=== PATIENT | female | born 1945 | race Caucasian/White ===

== ENCOUNTER 2018-03-19 19:47 | Inpatient (IN) | payer MEDICARE ==
[2018-03-19] MEDS ORDERED: fentaNYL* 50 MCG/ML 2 ML VIAL (100 MCG VIAL) IV ONE (19:58)
[2018-03-19] MEDS ORDERED: Ondansetron INJ* 2 MG/ML VIAL IV ONE (20:00)
[2018-03-19 20:26] LABS: ABS Basophils 0.1 10^3/ul (0-0.2); ABS Eosinophils 0.2 10^3/ul (0-0.6); ABS Lymphocytes 2.2 10^3/ul (1.0-4.8); ABS Monocytes 0.7 10^3/ul (0-0.8); ABS Neutrophils 7.8 10^3/ul (1.5-7.7); ABS Nucleated RBC 0 10^3/ul; Eosinophil % 1.6 % (0-6); Hematocrit 36 % (35-47); Hemoglobin 12.2 g/dl (12.0-16.0); Lymphocyte % 20.2 % (25-47); Mean Corpuscular HGB Conc 34 g/dl (31-36); Mean Corpuscular Hemoglobin 29 pg (27-31); Mean Corpuscular Volume 85 fL (80-97); Mean Platelet Volume 8.6 um3 (7.4-10.4); Nucleated Red Blood Cells % 0; Platelet Count 204 10^3/ul (150-450); Red Cell Distribution Width 15 % (10.5-15); White Blood Count 10.8 10^3/ul (3.5-10.8)
[2018-03-19 20:34] LABS: INR 0.9 (0.77-1.02)
[2018-03-19 20:37] LABS: EGFR Non-African American 45.2 (>60)
[2018-03-19] MEDS ORDERED: fentaNYL* 50 MCG/ML 2 ML VIAL (100 MCG VIAL) IV SLOW PU ONE (21:17)
--- NOTE | 2018-03-19 21:20 | RAD ---
HISTORY: Fall, preoperative evaluation COMPARISONS: None VIEWS: 1: frontal view of the chest FINDINGS: CARDIOMEDIASTINAL SILHOUETTE: The cardiomediastinal silhouette is normal. STEPHANY: The stephany are normal. PLEURA: The costophrenic angles are sharp. No pleural abnormalities are noted. LUNG PARENCHYMA: The lungs are clear. ABDOMEN: The upper abdomen is clear. There is no subphrenic gas. BONES AND SOFT TISSUES: No bone or soft tissue abnormalities are noted. OTHER: None. IMPRESSION: NO ACTIVE CARDIOPULMONARY DISEASE.
--- NOTE | 2018-03-19 21:20 | RAD ---
HISTORY: Fall, right hip pain COMPARISONS: None VIEWS: 5, Frontal view of the pelvis with frontal and crosstable lateral views of the right hip FINDINGS: BONE DENSITY: Normal. BONES: There is a slightly angulated intertrochanteric fracture of the right femur JOINTS: There is no arthropathy. ALIGNMENT: There is no dislocation. SOFT TISSUES: Unremarkable. OTHER FINDINGS: None. IMPRESSION: SLIGHTLY DILATED INTERTROCHANTERIC FRACTURE OF THE RIGHT FEMUR
--- NOTE | 2018-03-19 21:38 | ED ---
Los Mcarthur Thomas, scribed for Abdiaziz Hudson MD on 03/19/18 at 1958 . Lower Extremity - HPI Summary HPI Summary: The patient is a 72 year old female brought in by ambulance complaining of right hip pain after an accidental fall. The patient reports falling because she caught her sandal on the bottom of a chair when standing up. The patient denies head trauma. - History of Current Complaint Chief Complaint: EDHipPelvisInjury Stated Complaint: FALL Time Seen by Provider: 03/19/18 19:52 Hx Obtained From: Patient Mechanism Of Injury: Fall From A Standing Position Onset of Pain: Immediate Onset/Duration: Still Present Severity Currently: Moderate Timing: Constant Location: Is Discrete @ - right hip Associated Signs And Symptoms: Positive: Negative - head trauma Aggravating Factor(s): Ambulation, Movement, Weight Bearing Alleviating Factor(s): Nothing - Allergies/Home Medications Allergies/Adverse Reactions: Allergies Allergy/AdvReac Type Severity Reaction Status Date / Time No Known Allergies Allergy Verified 03/19/18 19:54 Home Medications: Home Medications Calcium Carbonate [Calcium] 500 mg PO BID 03/19/18 [History Confirmed 03/19/18] Doxazosin TAB* [Cardura TAB*] 8 mg PO DAILY 03/19/18 [History Confirmed 03/19/18 ] Escitalopram (NF) [Lexapro 10 mg (NF)] 10 mg PO DAILY 03/19/18 [History Confirmed 03/19/18] Losartan/Hydrochlorothiazide [Losartan-Hctz 100-25 mg Tab] 1 tab PO DAILY [History Confirmed 03/19/18] Multivitamins/Minerals TAB* [Theragran/minerals TAB*] 1 tab PO DAILY 03/19/18 [ History Confirmed 03/19/18] lamoTRIgine TAB(*) [LaMICtal TAB(*)] 100 mg PO BID 03/19/18 [History Confirmed 03/19/18] PMH/Surg Hx/FS Hx/Imm Hx Endocrine/Hematology History: Denies: Hx Diabetes Cardiovascular History: Reports: Hx Hypertension Respiratory History: Denies: Hx Asthma - Cancer History Hx Chemotherapy: No Hx Radiation Therapy: No - Surgical History Surgery Procedure, Year, and Place: gallbladder. throat surgery - Family History Known Family History: Positive: Other - Patient denies relevant FHx - Social History Alcohol Use: Rare Substance Use Type: Reports: None Smoking Status (MU): Never Smoked Tobacco Review of Systems Negative: Fever Positive: Other - Right hip pain Neurological: Negative - head trauma All Other Systems Reviewed And Are Negative: Yes Physical Exam - Summary Physical Exam Summary: VITAL SIGNS: Reviewed. GENERAL: Patient is a well-developed and nourished female who is lying comfortable in the stretcher. Patient is not in any acute respiratory distress. She is in moderate distress secondary to the pain. HEAD AND FACE: No signs of trauma. No ecchymosis, hematomas or skull depressions. No sinus tenderness. EYES: PERRLA, EOMI x 2, No injected conjunctiva, no nystagmus. EARS: Hearing grossly intact. Ear canals and tympanic membranes are within normal limits. MOUTH: Oropharynx within normal limits. NECK: Supple, trachea is midline, no adenopathy, no JVD, no carotid bruit, no c- spine tenderness, neck with full ROM. CHEST: Symmetric, no tenderness at palpation LUNGS: Clear to auscultation bilaterally. No wheezing or crackles. CVS: Regular rate and rhythm, S1 and S2 present, no murmurs or gallops appreciated. ABDOMEN: Soft, non-tender. No signs of distention. No rebound no guarding, and no masses palpated. Bowel sounds are normal. EXTREMITIES: The right lower extremity is short and externally rotated. I cannot move the RLE because of the pain. Neurovascular exam in the intact in the distal right leg. No edema, no cyanosis or clubbing. NEURO: Alert and oriented x 3. No acute neurological deficits. Speech is normal and follows commands. SKIN: Dry and warm Triage Information Reviewed: Yes Vital Signs Reviewed: Yes Diagnostics - Laboratory Result Diagrams: 03/19/18 20:08 03/19/18 20:08 Lab Statement: Any lab studies that have been ordered have been reviewed, and results considered in the medical decision making process. - Radiology CXR Xray Interpretation: No Acute Changes - IMPRESSION: NO ACTIVE CARDIOPULMONARY DISEASE. Dr. Hudson has reviewed this report. Radiology Interpretation Completed By: Radiologist Hip XR Xray Interpretation: Positive (See Comments) - IMPRESSION: SLIGHTLY DILATED INTERTROCHANTERIC FRACTURE OF THE RIGHT FEMUR. Dr. Hudson has reviewed this report. Radiology Interpretation Completed By: Radiologist - EKG 20:12 Cardiac Rate: NL EKG Rhythm: Sinus Rhythm - at 71 BPM EKG Interpretation: Normal axis, normal intervals, no acute ischemic change. Lower Extremity Course/Dx - Course Assessment/Plan: The patient is a 72 year old female brought in by ambulance complaining of right hip pain after an accidental fall. The patient reports falling because she caught her sandal on the bottom of a chair when standing up. In the ED course, the patient was given Zofran and Fentanyl. Bloodwork, CXR , and EKG were obtained. Hip XR shows right intertrochanteric fracture. Dr. Cuello, orthopedics, recommends admission to the hospitalists. Dr. Cuello will see the patient tomorrow morning. - Diagnoses Provider Diagnoses: Hip fracture, right - Physician Notifications Discussed Care Of Patient With: Astrid Cuello Time Discussed With Above Provider: 21:20 Instructed by Provider To: Other - Dr. Cuello, orthopedics, recommends admission to the hospitalists. Dr. Oliveira, hospitalist, will admit the patient at 21:27. Discharge - Sign-Out/Discharge Documenting (check all that apply): Discharge/Admit/Transfer - Discharge Plan Condition: Stable Disposition: ADMITTED TO [facility] Referrals: Servando Higuera MD [Primary Care Provider] - The documentation as recorded by the Los carroll Thomas accurately reflects the service I personally performed and the decisions made by me, Abdiaziz Hudson MD.
[2018-03-19] MEDS ORDERED: Al Hydrox/Mg Hydrox/Simet LIQ* 30 ML UDC PO PRN (22:19)
[2018-03-19] MEDS ORDERED: Morphine INJ* 2 MG/ML 1 ML CARPUJECT IV PRN (22:19)
[2018-03-19] MEDS ORDERED: hydrALAZINE IV* 20 MG/ML VIAL IV SLOW PU PRN ×2 (22:27→22:36)
[2018-03-19] MEDS ORDERED: LORazepam TAB(*) 0.5 MG PO PRN (22:30)
[2018-03-19] MEDS ORDERED: Heparin VIAL(*) 5000 UNITS/ML VIAL (FIVE THOUSAND) SUBCUT SCH (23:00)
[2018-03-19] MEDS: amLODIPine TAB* 5 MG PO SCH (23:10)
[2018-03-19] MEDS: Morphine VIAL* 4 MG/ML VIAL (1 ml vial) IV PRN (23:57)
[2018-03-20] MEDS: NS 0.9% 1000 ML* 1,000 ML IV SCH ×2 (00:21→23:30)
[2018-03-20] MEDS: oxyCODONE TAB* 5 MG TAB PO PRN ×3 (00:26→09:39)
--- NOTE | 2018-03-20 00:31 | HP ---
CC: Dr. Higuera * HISTORY AND PHYSICAL: DATE OF ADMISSION: 03/19/18 PROVIDER: Jacque Lepe NP PRIMARY CARE PROVIDER: Dr. Higuera. ATTENDING PHYSICIAN WHILE IN THE HOSPITAL: Dr. Neha Oliveira * (dictated by Jacque Lepe NP). CHIEF COMPLAINT: Right hip pain after a fall. HISTORY OF PRESENT ILLNESS: Ms. Yancey is a 72-year-old female patient who carries a past medical history of epilepsy, hypertension and anxiety, who presented to the emergency room today after a fall at home. The patient states that she was getting up out of her recliner to put her dog in her crate and her shoe got caught on the rug causing her to fall and land on her right hip. She was unable to move or ambulate after the fall. She denies any loss of consciousness. Denies any dizziness. Denies any head, back, or neck pain. She denies any recent illnesses. The patient was seen and evaluated in the emergency room. She was found to have a right slightly dilated intertrochanteric fracture of the right femur. Given the diagnosis of the right hip fracture, we were asked to see and evaluate her for admission. PAST MEDICAL HISTORY: Significant for: 1. Hypertension. 2. Anxiety. 3. Epilepsy. PAST SURGICAL HISTORY: Cholecystectomy. HOME MEDICATIONS: Include: 1. Lamictal 100 mg p.o. b.i.d. 2. Multivitamin. 3. Losartan/hydrochlorothiazide 100/25. 4. Lexapro 10 mg p.o. daily. 5. Cardura 8 mg p.o. daily. ALLERGIES: She has got no known drug allergies. FAMILY HISTORY: No coronary artery disease. No diabetes. She does report a brother with pancreatic cancer. SOCIAL HISTORY: She denies any tobacco or illicit drug use. She does report rare alcohol use. She is and she currently lives with her . In the event she is unable to make her own decisions, her surrogate decision maker is her , Felipe Yancey. His phone number is [phone]. Other surrogate decision maker is her daughter, Sheyla Mattson. Her phone number is [phone]. REVIEW OF SYSTEMS: There was no documented fever. There has been no significant weight change. There was no double vision. No ear drainage. She denied any rhinorrhea or sore throat. She denies any chest pain or shortness of breath. She denies any orthopnea or nocturnal dyspnea. There is no abdominal pain. No nausea, vomiting, or diarrhea. Denies any urinary frequency or urgency. She denies any seizures. Denies any loss of consciousness. She denies head injury. She denies neck or back pain. She denies any rashes or lesions. She denies any depression. She just reported mild anxiety at this time. She denies any cough or shortness of breath or any hemoptysis. She denies any focal weakness or sensory loss. PHYSICAL EXAMINATION GENERAL: At this time, Ms. Yancey is a 72-year-old female, who appears in moderate distress resting on the stretcher. VITAL SIGNS: Blood pressure is 174/72, pulse of 64, respirations 16, O2 saturation was 100%, temperature was 97.9. HEENT: Head is atraumatic, normocephalic. Eyes: EOMs are intact. Sclerae anicteric and not pale. Oral mucosa appears to be moist. NECK: Supple. LUNGS: Clear to auscultation bilaterally. No wheezes, rales, or rhonchi. CARDIAC: S1, S2. Regular rate and rhythm. No murmurs, rubs, or gallops. ABDOMEN: Soft and nontender. Bowel sounds are present x4. EXTREMITIES: Pulses, pedal and posterior tibialis pulses are +2 bilaterally. She does have limited range of motion to her right leg. It is externally rotated and bent at the knee for comfort. Sensation is intact to bilateral lower extremities. NEUROLOGIC: She is alert and oriented x3. Her speech is clear. There are no focal deficits. SKIN: Intact. DIAGNOSTIC AND LABORATORY DATA: WBCs were 10.8, RBCs 4.20, hemoglobin was 12.2 , hematocrit was 36, platelet count was 204. INR was 0.90. Chemistry: Sodium 137, potassium 3.6, chloride 103, carbon dioxide was 24, anion gap was 10, BUN was 27, creatinine 1.17, glucose was 108, calcium 9.2. ASTs were 17, ALTs were 14, alkaline phosphatase was 123. Chest x-ray, no active cardiopulmonary disease. She had an electrocardiogram which showed sinus rhythm at a rate of 71. There were no ST changes. She had x-ray of the hip and pelvis, radiologist's impression: Slightly dilated intertrochanteric fracture of the right femur. ASSESSMENT AND PLAN: Ms. Yancey is a 72-year-old female that presented to the emergency room today after a fall at home, where she tripped over the rug. We were asked to see and evaluate her due to her right hip fracture. She will be admitted in inpatient status for: 1. Intertrochanteric fracture of the right femur. We will give her oxycodone 5 mg p.o. q.4 hours as needed for pain and we will also add morphine 4 mg IV q.4 hours as needed for moderate to severe pain. I will give her Ativan 0.5 mg p.o. q.8 hours as needed for anxiety. She will be n.p.o. after midnight. Dr. Cuello from Orthopedics has been consulted and will see the patient in the morning. If she continues to have muscle spasms in her right leg, we can consider ordering Flexeril 10 mg x1. At this time, the patient is a suitable candidate for surgery. She does not need any further workup. She is able to continue daily activities at home. She does not develop any chest pain or shortness of breath. She is able to wash her dishes and carry groceries and walk without any exertional shortness of breath or chest pain. 2. Hypertension. She was hypertensive on admission. Her last blood pressure was 174/72. Her admission blood pressure was 206/107. We will continue her on her Cardura 8 mg p.o. daily and losartan 100/25 p.o. daily. I have also ordered p.r.n. hydralazine 10 mg q.6 hours as needed for systolic blood pressure greater than 180. I will also add amlodipine 5 mg p.o. daily. 3. Epilepsy. We will continue her Lamictal 100 mg p.o. b.i.d. 4. Anxiety and depression. We will continue Lexapro 10 mg p.o. daily. 5. FEN. She will be n.p.o. after midnight. I will start normal saline at 100 cc an hour. 6. Code status: She is a full code. 7. DVT prophylaxis: I will give her one dose of heparin [address] SCDs as she is at highest risk with a score of 8. She should resume her heparin after surgery when cleared by Orthopedics for DVT prophylaxis. 8. Disposition: She will be placed inpatient. TIME SPENT: Time spent on this admission was approximately 60 minutes, greater than half that time was spent [id number] with the patient and the family obtaining my history and physical, the other half the time was spent going over the plan of care with the patient and her family and implementing my plan of care. I have discussed this with my attending, Dr. Neha Oliveira, and she is in agreement with my plan. JACQUE LEPE, INTERNET PROJECT MANAGER [id number]/[facility] #: [id number] MATTIE
[2018-03-20] MEDS: Morphine VIAL* 4 MG/ML VIAL (1 ml vial) IV PRN ×3 (03:24→12:04)
[2018-03-20 05:28] LABS: ABS Basophils 0 10^3/ul (0-0.2); ABS Eosinophils 0 10^3/ul (0-0.6); ABS Monocytes 0.7 10^3/ul (0-0.8); ABS Neutrophils 12.2 10^3/ul (1.5-7.7); ABS Nucleated RBC 0 10^3/ul; Eosinophil % 0 % (0-6); Hematocrit 35 % (35-47); Hemoglobin 11.9 g/dl (12.0-16.0); Lymphocyte % 7.2 % (25-47); Mean Corpuscular HGB Conc 34 g/dl (31-36); Mean Corpuscular Hemoglobin 29 pg (27-31); Mean Corpuscular Volume 86 fL (80-97); Mean Platelet Volume 8.6 um3 (7.4-10.4); Nucleated Red Blood Cells % 0.1; Platelet Count 186 10^3/ul (150-450); Red Blood Count 4.11 10^6/ul (4.0-5.4); Red Cell Distribution Width 15 % (10.5-15); White Blood Count 13.8 10^3/ul (3.5-10.8)
[2018-03-20 05:31] LABS: INR 0.98 (0.77-1.02)
[2018-03-20 05:42] LABS: EGFR Non-African American 61.2 (>60)
[2018-03-20] MEDS ORDERED: Doxazosin TAB* 2 MG PO SCH ×2 (09:00→21:00)
[2018-03-20] MEDS ORDERED: Sodium Citrate/Citric Acid* 15 ML UDC PO ONE (09:30)
[2018-03-20] MEDS ORDERED: Acetaminophen IV 1GM/100ML * 1,000 MG/100 ML VIAL IVPB ONE (09:30)
[2018-03-20] MEDS ORDERED: Dexamethasone IV* 4 MG/ML 1 ML (4 MG) IV SLOW PU ONE (09:30)
[2018-03-20] MEDS ORDERED: Buffered Lidocaine 0.9% SYRIN* 5 ML/SYR SYRINGE INTRADERM ONE (09:30)
--- NOTE | 2018-03-20 09:43 | RAD ---
Indication: Right hip fracture Comparison: None. Technique: 6 views right femur. Report: A lucent line overlying the intertrochanteric line could be a nondisplaced fracture. On the crosstable lateral view there is cortical discontinuity along the posterior aspect of the intertrochanteric line confirming a nondisplaced fracture. Elsewhere the visualized bones are adequately corticated and well aligned. IMPRESSION: Nondisplaced right intertrochanteric fracture.
[2018-03-20] MEDS: Multivitamins/Minerals TAB PO SCH (09:58)
[2018-03-20] MEDS: Calcium Carbonate TAB* 1250 MG (CALCIUM 500 MG) PO SCH ×2 (09:58→21:05)
[2018-03-20] MEDS: amLODIPine TAB* 5 MG PO SCH (10:10)
[2018-03-20] MEDS: Hydrochlorothiazide TAB* 25 MG PO SCH (10:11)
[2018-03-20] MEDS: lamoTRIgine TAB(*) 100 MG PO SCH ×2 (10:15→21:05)
[2018-03-20] MEDS: Citalopram TAB* 20 MG PO SCH (10:16)
[2018-03-20] MEDS: Losartan TAB* 25 MG PO SCH (10:16)
[2018-03-20] MEDS ORDERED: Bupivacaine 0.5%* 50 ML VIAL ONE (12:59)
--- NOTE | 2018-03-20 13:07 | CONS ---
ORTHOPEDIC CONSULTATION: DATE OF CONSULT: 03/20/18 Thank you for this orthopedic consultation. CHIEF COMPLAINT: Right hip pain. HISTORY OF PRESENT ILLNESS: Ms. Yancey is a 72-year-old female who tripped on a rug in her home falling hard on to her right side. She immediately had 10/10 pain. Any attempt to move the right leg or stand increased her pain. Only immobilization decreased her pain. She denies a prior history of hip pain. She was brought to [facility] and diagnosed with intertrochanteric hip fracture. I am consulted for orthopedic fracture care. PAST MEDICAL HISTORY: Hypertension, osteoarthritis, epilepsy, anxiety. PAST SURGICAL HISTORY: Cholecystectomy CURRENT MEDICATIONS: lamictal 100 mg po bid, losartan/hctz 100/25 mg po qdaily , lexapro 10 mg po qdaily, cardura 8 mg po qdaily. ALLERGIES: No known drug allergies. FAMILY HISTORY: Negative. SOCIAL HISTORY: The patient lives with her . No tobacco or drug use. Minimal alcohol use. She normally ambulates independently. No tobacco, alcohol or recreational drug use. REVIEW OF SYSTEMS: A 14 systems reviewed with the patient, positive for the recent fall, positive for right hip pain. Otherwise, the patient reports review of systems is negative or not relevant. PHYSICAL EXAM: Vitals: BP 174/72, HR 64, temperature 97.9. General: The patient is a well-nourished female, no apparent distress. Alert and oriented x3. Pleasant mood and appropriate affect. Gait: The patient's gait is not assessed. HEENT: Atraumatic, normocephalic. Pupils equal and reactive to light. Chest: Unlabored breathing. Abdomen: Soft, nontender, nondistended. Bilateral upper extremities: The patient can move her shoulders, elbow, and wrist without any pain. No bony tenderness to palpation, 2+ palpable radial pulses. Right Lower Extremity: The patient's skin is intact. No abrasions or open wounds. Her leg is shortened and externally rotated. She has swelling at the thigh although this is compressible. Distally, she demonstrates dorsiflexion , plantar flexion in EHL, 2+ palpable DP pulse. Full sensation to light touch in all nerve distributions. Left Lower Extremity: The patient's skin is intact. No abrasions or open wounds. She can flex the hip and knee without pain. No bony tenderness to palpation. Distally neurovascularly intact. DIAGNOSTIC STUDIES/LAB DATA: Multiple views of the patient's right hip show a low basicervical, high intertrochanteric displaced hip fracture. I have no films of the femur. ASSESSMENT AND PLAN: Ms. Yancey is a 72-year-old female status post fall with a right intertrochanteric hip fracture that is displaced. The patient and I discussed both operative and nonoperative treatment options. She would definitely like to proceed with operative fixation of the fracture and this is my best medical recommendation as well. We briefly discussed the risks and benefits of open reduction and internal fixation of the right hip. I would recommend a cephalomedullary device for this fracture. The patient will remain on bedrest with p.r.n. analgesia. She has Roht catheter. She should be n.p.o. I have called the operating room and next available OR will be approximately 2 p.m. today. We will schedule her for gamma nail of the right hip. [id number]/[facility] #: [id number] MTDD
[2018-03-20] MEDS ORDERED: Dexamethasone IV* 4 MG/ML 1 ML (4 MG) ONE ×2 (13:15→14:42)
[2018-03-20] MEDS ORDERED: Sodium Citrate/Citric Acid* 15 ML UDC ONE (13:16)
[2018-03-20] MEDS ORDERED: Acetaminophen IV 1GM/100ML * 100 ML ONE (13:18)
[2018-03-20] MEDS ORDERED: Propofol* 10 MG/ML 20 ML BTL IV PUSH ONE (13:50)
[2018-03-20] MEDS ORDERED: Atracurium* 10 MG/ML 10 ML VIAL ONE (13:51)
[2018-03-20] MEDS ORDERED: Midazolam* 1 MG/ML 2 ML VIAL (2 MG) ONE (13:51)
[2018-03-20] MEDS ORDERED: fentaNYL* 50 MCG/ML 2 ML VIAL (100 MCG VIAL) ONE ×2 (13:51→16:24)
[2018-03-20] MEDS ORDERED: ceFAZolin 2 GM PREMIX (*) 2 GM/50 ML BAG IVPB ONE (14:00)
[2018-03-20] MEDS ORDERED: Succinylcholine* 20 MG/ML 10 ML VIAL ONE (15:07)
[2018-03-20] MEDS ORDERED: Ondansetron INJ* 2 MG/ML VIAL IV PRN (15:10)
[2018-03-20] MEDS ORDERED: Naloxone* 0.4 MG/ML 1 ML VIAL IV PRN (15:10)
[2018-03-20] MEDS ORDERED: Ondansetron INJ* 2 MG/ML VIAL ONE (15:32)
--- NOTE | 2018-03-20 16:13 | RAD ---
HISTORY: Right femur internal fixation, right femur fracture, fall COMPARISONS: March 20, 2018 TECHNIQUE: Fluoroscopy was provided for a surgical procedure. Total fluoroscopy time is: 56.1 seconds FINDINGS: Spot images demonstrate internal fixation of the right proximal femur IMPRESSION: FLUOROSCOPY WAS PROVIDED FOR A SURGICAL PROCEDURE CPT II Codes: G9500
[2018-03-20] MEDS: fentaNYL* 50 MCG/ML 2 ML VIAL (100 MCG VIAL) IV PRN ×2 (16:25→16:30)
[2018-03-20] MEDS ORDERED: HYDROmorphone INJ* 2 MG/ML CARPUJECT SYRINGE ONE (16:54)
[2018-03-20] MEDS: HYDROmorphone INJ* 1 MG/ML CARPUJECT SYRINGE IV PRN ×2 (16:58→17:03)
[2018-03-20] MEDS: Enoxaparin(*) 30 MG/0.3 ML SYR SUBCUT SCH (17:53)
--- NOTE | 2018-03-20 20:28 | PN ---
Subjective Date of Service: 03/20/18 Interval History: Denies any chest pain or shortness of breath. States right hip pain has improved. Denies any n/v/d denies abd pain. Family History: Unchanged from Admission Social History: Unchanged from Admission Past Medical History: Unchanged from Admission Objective Active Medications: Al Hydrox/Mg Hydrox/Simethicone (Maalox Plus*) 30 ml PO Q6H PRN PRN Reason: INDIGESTION Calcium Carbonate (Calcium Carbonate Tab*) 1,250 mg PO BID [facility] Last Admin: 03/20/18 09:58 Dose: Not Given Citalopram Hydrobromide (Celexa Tab*) 20 mg PO DAILY [facility] Last Admin: 03/20/18 10:16 Dose: 20 mg Doxazosin Mesylate (Cardura Tab*) 8 mg PO BEDTIME [facility] Enoxaparin Sodium (Lovenox(*)) 30 mg SUBCUT Q24H [facility] Last Admin: 03/20/18 17:53 Dose: 30 mg Fentanyl Citrate (Fentanyl*) 25 mcg IV Q2M PRN PRN Reason: PAIN - MODERATE Stop: 03/20/18 21:00 Last Admin: 03/20/18 16:30 Dose: 25 mcg Hydralazine HCl (Apresoline Iv*) 10 mg IV SLOW PU Q6H PRN PRN Reason: SBP> 180 Hydrochlorothiazide (Hydrodiuril Tab*) 25 mg PO DAILY [facility] Last Admin: 03/20/18 10:11 Dose: Not Given Hydromorphone HCl (Dilaudid Injic*) 0.1 mg IV Q5M PRN PRN Reason: PAIN - SEVERE Stop: 03/20/18 21:00 Last Admin: 03/20/18 17:03 Dose: 0.1 mg Sodium Chloride (Ns 0.9% 1000 Ml*) 1,000 mls @ 100 mls/hr IV PER RATE [facility] Last Admin: 03/20/18 00:21 Dose: 100 mls/hr Lactated Ringer's (Lactated Ringers 1000 Ml Bag*) 1,000 mls @ 125 mls/hr IV PER RATE [facility] Last Admin: 03/20/18 17:47 Dose: 125 mls/hr Cefazolin Sodium/Dextrose (Kefzol 1 Gm In Dextrose Duplex (*)) 1 gm in 50 mls @ 200 mls/hr IVPB Q8H [facility] Lamotrigine (Lamictal Tab(*)) 100 mg PO BID [facility] Last Admin: 03/20/18 10:15 Dose: 100 mg Lorazepam (Ativan Tab(*)) 0.5 mg PO Q8H PRN PRN Reason: ANXIETY Losartan Potassium (Cozaar Tab*) 100 mg PO DAILY [facility] Last Admin: 03/20/18 10:16 Dose: 100 mg Morphine Sulfate (Morphine Vial*) 4 mg IV Q4H PRN PRN Reason: PAIN Last Admin: 03/20/18 12:04 Dose: 4 mg Multivitamins/Minerals (Theragran/Minerals Tab*) 1 tab PO DAILY [facility] Last Admin: 03/20/18 09:58 Dose: Not Given Naloxone HCl (Narcan*) 0.08 mg IV Q2M PRN PRN Reason: severe induced resp depression Stop: 03/20/18 21:00 Ondansetron HCl (Zofran Inj*) 4 mg IV ONCE PRN PRN Reason: NAUSEA/VOMITING Stop: 03/20/18 21:00 Oxycodone HCl (Roxycodone Tab*) 5 mg PO Q4H PRN PRN Reason: PAIN - MODERATE TO SEVERE Last Admin: 03/20/18 09:39 Dose: 5 mg Vital Signs - 8 hr 03/20/18 03/20/18 03/20/18 13:02 16:00 16:03 Temperature 99.5 F Pulse Rate 62 98 Respiratory 18 Rate Blood Pressure 113/46 (mmHg) O2 Sat by Pulse 96 99 96 Oximetry 03/20/18 03/20/18 03/20/18 16:04 16:05 16:11 Temperature 98.2 F 98.2 F Pulse Rate 92 78 76 Respiratory 7 15 Rate Blood Pressure 146/59 142/56 142/57 (mmHg) O2 Sat by Pulse 97 97 96 Oximetry 03/20/18 03/20/18 03/20/18 16:16 16:20 16:25 Temperature 98.2 F 98.2 F Pulse Rate 75 65 Respiratory 16 14 16 Rate Blood Pressure 141/58 145/59 (mmHg) O2 Sat by Pulse 97 98 Oximetry 03/20/18 03/20/18 03/20/18 16:26 16:30 16:31 Temperature 98.2 F 98.2 F Pulse Rate 69 76 Respiratory 17 17 13 Rate Blood Pressure 118/70 120/69 (mmHg) O2 Sat by Pulse 83 100 Oximetry 03/20/18 03/20/18 03/20/18 16:45 16:58 17:00 Temperature 98.2 F 98.2 F Pulse Rate 57 67 Respiratory 11 16 15 Rate Blood Pressure 130/61 (mmHg) O2 Sat by Pulse 98 88 Oximetry 03/20/18 03/20/18 03/20/18 17:01 17:03 17:16 Temperature 98.2 F 98.4 F Pulse Rate 55 69 Respiratory 15 17 20 Rate Blood Pressure 138/56 138/80 (mmHg) O2 Sat by Pulse 97 94 Oximetry 03/20/18 03/20/18 03/20/18 17:30 18:29 18:34 Temperature 98.2 F 98.7 F Pulse Rate 58 54 57 Respiratory 18 16 Rate Blood Pressure 122/38 109/34 119/47 (mmHg) O2 Sat by Pulse 99 99 Oximetry 03/20/18 03/20/18 19:35 20:07 Temperature 98.5 F Pulse Rate 55 Respiratory 16 20 Rate Blood Pressure 121/47 (mmHg) O2 Sat by Pulse 100 Oximetry Oxygen Devices in Use Now: Nasal Cannula Appearance: apppears comfortabel sitting in bed Eyes: No Scleral Icterus, PERRLA Ears/Nose/Mouth/Throat: Clear Oropharnyx, Mucous Membranes Moist Neck: NL Appearance and Movements; NL JVP, Trachea Midline Respiratory: Symmetrical Chest Expansion and Respiratory Effort, Clear to Auscultation Cardiovascular: NL Sounds; No Murmurs; No JVD, No Edema Abdominal: NL Sounds; No Tenderness; No Distention Extremities: No Edema, No Clubbing, Cyanosis, - Skin: No Rash or Ulcers, No Nodules or Sclerosis, - - dressing dry and intact to right lateral thigh. Neurological: Alert and Oriented x 3 Nutrition: Taking PO's Result Diagrams: 03/20/18 04:57 03/20/18 04:57 Assess/Plan/Problems-Billing Assessment: Ms. Yancey is a 72 y.o female with a history of HTN, anxiety and epilepsy who presented to to the ER for right hip pain after a fall. Haseeb was found to have a fractured right hip and under went surgical repair today. - Patient Problems (1) Hip fracture, right Current Visit: Yes Status: Acute Code(s): S72.001A - FRACTURE OF UNSP PART OF NECK OF RIGHT FEMUR, INIT SNOMED Code(s): 565795768 Comment: _ to the OR today for repair - management per orthopedics PT/OT per orthopedics Pain management per ortho (2) Epilepsy Current Visit: Yes Status: Acute Code(s): G40.909 - EPILEPSY, UNSP, NOT INTRACTABLE, WITHOUT STATUS EPILEPTICUS SNOMED Code(s): 11157310 Comment: stable - no seizure in 12 years - will continue lamictal (3) Anxiety Current Visit: Yes Status: Acute Code(s): F41.9 - ANXIETY DISORDER, UNSPECIFIED SNOMED Code(s): 18807112 Comment: stable will continue lexapro and supportive care as needed (4) Hypertension Current Visit: Yes Status: Acute Code(s): I10 - ESSENTIAL (PRIMARY) HYPERTENSION SNOMED Code(s): 61626688 Comment: will continue cardura and losartan hydralizine prn as needed for SBP greater than 180 (5) DVT prophylaxis Current Visit: Yes Status: Acute Code(s): OTM6873 - SNOMED Code(s): 527669078 Comment: as per orthopedics (6) Full code status Current Visit: Yes Status: Acute Code(s): Z78.9 - OTHER SPECIFIED HEALTH STATUS SNOMED Code(s): 366545052 Status and Disposition: inpatient
[2018-03-20] MEDS: ceFAZolin 1 GM in Dextrose (*) 1 GM/50 ML BAG IVPB SCH (22:27)
[2018-03-21] MEDS: oxyCODONE TAB* 5 MG TAB PO PRN ×2 (02:57→08:14)
[2018-03-21] MEDS: ceFAZolin 1 GM in Dextrose (*) 1 GM/50 ML BAG IVPB SCH ×3 (06:49→22:52)
[2018-03-21] MEDS: lamoTRIgine TAB(*) 100 MG PO SCH ×2 (08:15→20:04)
[2018-03-21] MEDS: Citalopram TAB* 20 MG PO SCH (08:15)
[2018-03-21] MEDS: Multivitamins/Minerals TAB PO SCH (08:15)
[2018-03-21] MEDS: Calcium Carbonate TAB* 1250 MG (CALCIUM 500 MG) PO SCH ×2 (08:15→20:02)
[2018-03-21] MEDS: Hydrochlorothiazide TAB* 25 MG PO SCH (08:31)
[2018-03-21] MEDS: Docusate CAP* 100 MG PO SCH ×2 (08:34→20:03)
[2018-03-21] MEDS: Losartan TAB* 25 MG PO SCH (08:35)
[2018-03-21 10:46] LABS: ABS Basophils 0 10^3/ul (0-0.2); ABS Eosinophils 0 10^3/ul (0-0.6); ABS Lymphocytes 1.2 10^3/ul (1.0-4.8); ABS Monocytes 0.9 10^3/ul (0-0.8); ABS Neutrophils 10.8 10^3/ul (1.5-7.7); ABS Nucleated RBC 0 10^3/ul; Eosinophil % 0.1 % (0-6); Hematocrit 27 % (35-47); Hemoglobin 9.1 g/dl (12.0-16.0); Lymphocyte % 9.3 % (25-47); Mean Corpuscular HGB Conc 34 g/dl (31-36); Mean Corpuscular Hemoglobin 29 pg (27-31); Mean Corpuscular Volume 86 fL (80-97); Mean Platelet Volume 8.3 um3 (7.4-10.4); Nucleated Red Blood Cells % 0; Platelet Count 150 10^3/ul (150-450); Red Blood Count 3.12 10^6/ul (4.0-5.4); Red Cell Distribution Width 15 % (10.5-15); White Blood Count 12.9 10^3/ul (3.5-10.8)
--- NOTE | 2018-03-21 10:53 | OP ---
OPERATIVE REPORT: DATE OF OPERATION: 03/20/18 DATE OF : 41 SURGEON: Astrid Cuello MD ACCOUNTS PAYABLE COORDINATOR: Vasiliy DAMON. Mr. Sarah did help throughout the procedure with preparation of the leg, wound retraction, manipulation of the hip, and wound closure. ANESTHESIOLOGIST: Valente Payton MD ANESTHESIA: General. PRE-OP DIAGNOSIS: Right displaced intertrochanteric hip fracture. POST-OP DIAGNOSIS: Right displaced intertrochanteric hip fracture. OPERATIVE PROCEDURE: Open reduction and internal fixation of the right intertrochanteric hip fracture with a cephalomedullary device. INDICATIONS: Ms. Yancey is a 72-year-old female, who fell [place] her home on . She was brought to the [facility] and diagnosed with a displaced intertrochanteric hip fracture of the right. She was medically optimized for surgery. She wished to proceed with operative fixation. Informed consent was obtained from the patient. She understood the risks of surgery included, but were not limited to, bleeding, infection, damage to nearby structures, continued pain, need for further surgery, intraoperative fracture, nerve palsy, hardware failure or loosening, failure of the bone to heal, stroke, heart attack , blood clot, and . She wished to proceed. COMPLICATIONS: None. ESTIMATED BLOOD LOSS: 400 cc. SPECIMEN: None. HARDWARE: This is a short gamma nail 11 x 180 x 125. For the proximal lag screw 10.5 x 105 mm. For the distal locking screw 5 x 32.5. INTRAOPERATIVE FINDINGS: Intraoperatively, she was noted to have a displaced intertrochanteric hip fracture. This was a low basicervical versus high intertroch. DESCRIPTION OF PROCEDURE: Ms. Yancey was identified in the preanesthesia unit. Her right lower extremity was marked as the correct operative side. Informed consent was signed and placed in the chart. The patient was taken to the operating room and placed under general anesthesia without difficulty. The patient was placed on the fracture table. Left leg was placed in the lithotomy position. Right leg was placed in the traction boot. All bony prominences were well padded. A reduction maneuver on flexion followed by extension with internal rotation and abduction was performed. A small amount of traction was applied to the leg. AP and lateral C-arm views confirmed the satisfactory reduction of the hip fracture. The right lower extremity was prepped and draped in the usual sterile fashion. Preop time-out was made to correctly identify the patient's side and site. Appropriate perioperative antibiotics were given within 1 hour of incision. A 4-cm proximal incision was made starting at the tip of the greater troch and extending proximally. This incision was made with the 10 blade. Dissection down to the lateral fascial layer was made with electrocautery. New 10 blade was used to make an incision in the lateral fascia. Finger dissection down to the tip of the greater trochanter was made. An awl was used to find the starting position on the tip of the greater trochanter. The proper starting position was confirmed on the AP and lateral views. The awl was advanced to the appropriate amount. A guidewire was placed through the cannulated portion of the awl and across the fracture site. AP and lateral views confirmed satisfactory placement of the guidewire in an intramedullary position. The awl was carefully removed. Sequential reaming was performed over the guidewire. This was performed distally to 12.5 mm and proximally to 15.5 mm. Next, a short gamma nail was chosen. This was 11 x 180 x 125. This was carefully advanced over the guidewire. AP and lateral C-arm views confirmed that the short gamma nail has been advanced to proper amount. The lag screw lateral guide was then positioned down the skin. A 10 blade was used to make an incision on the skin and this was carried down to bone through the fascial layer. The lag screw guide was advanced down the bone and locked into place. The guidewire was used to find the central position in the femoral neck and head. This was obtained in different positioning as well as AP and lateral C- arm views. Central position of the guidewire was obtained. The guidewire was measured at 105 mm. Pre-drilling was performed over the guidewire. A 10.5 x 105 lag screw was placed carefully over the guidewire. The fracture reduction remained satisfactory throughout this process. A set screw was placed in the proximal nail and locked into place. Next, the distal locking screw was placed using the lateral guide through the lateral arm of the gamma nail instrument. A 10 blade was used to make 1-cm incision on the skin and this was carried down through the fascia to the bone. The distal locking screw guide was advanced down to the bone. Drilling was performed through the nail. A 32.5-mm distal locking screw was chosen as the appropriate length. This was advanced through the guide and placed through the nail. AP and lateral C-arm views confirmed that the distal locking screw was through the nail. At this point, the lateral gamma nail arm was carefully removed. Final films were obtained and confirmed satisfactory fracture reduction and placement of the nail. Incisions were irrigated copiously with sterile saline. The wounds were closed in a layered fashion. The fascial layers were closed using interrupted #1 Vicryls. The rest of the incisions were closed in a layered fashion using 0 and 2-0 Vicryls. Skin was closed using mary beth. Sterile Xeroform, 4x4s, abdominal pad, and paper tape were used to cover the incision. The patient was taken off the table without difficulty. The patient' s anesthesia was reversed without difficulty. She was taken to the PACU in stable condition. Intended weightbearing will be weightbearing as tolerated. Intended DVT prophylaxis will be Lovenox. [id number]/[facility] #: [id number] MATTIE
[2018-03-21 11:00] LABS: EGFR Non-African American 74.4 (>60)
[2018-03-21] MEDS ORDERED: Doxazosin TAB* 2 MG PO SCH (11:25)
[2018-03-21] MEDS: NS 0.9% 1000 ML* 1,000 ML IV SCH (11:44)
--- NOTE | 2018-03-21 12:07 | PN ---
Subjective Date of Service: 03/21/18 Interval History: Patient states that she feels good without pain at rest and moderate pain with movement. Patient has no abdominal pain, has been passing flatus, no CP, SOB, N/ V, F/C, N/V, patient has had no BM. Patient later became lightheaded with significant orthostasis without CP when working with PT but had no syncope. Family History: Unchanged from Admission Social History: Unchanged from Admission Past Medical History: Unchanged from Admission Objective Active Medications: Al Hydrox/Mg Hydrox/Simethicone (Maalox Plus*) 30 ml PO Q6H PRN PRN Reason: INDIGESTION Calcium Carbonate (Calcium Carbonate Tab*) 1,250 mg PO BID [facility] Last Admin: 03/21/18 08:15 Dose: 1,250 mg Citalopram Hydrobromide (Celexa Tab*) 20 mg PO DAILY [facility] Last Admin: 03/21/18 08:15 Dose: 20 mg Docusate Sodium (Colace Cap*) 200 mg PO BID [facility] Last Admin: 03/21/18 08:34 Dose: 200 mg Doxazosin Mesylate (Cardura Tab*) 8 mg PO BEDTIME [facility] Enoxaparin Sodium (Lovenox(*)) 30 mg SUBCUT Q24H [facility] Last Admin: 03/20/18 17:53 Dose: 30 mg Hydralazine HCl (Apresoline Iv*) 10 mg IV SLOW PU Q6H PRN PRN Reason: SBP> 180 Hydrochlorothiazide (Hydrodiuril Tab*) 25 mg PO DAILY [facility] Sodium Chloride (Ns 0.9% 1000 Ml*) 1,000 mls @ 100 mls/hr IV PER RATE [facility] Last Admin: 03/21/18 11:44 Dose: 100 mls/hr Lactated Ringer's (Lactated Ringers 1000 Ml Bag*) 1,000 mls @ 125 mls/hr IV PER RATE [facility] Last Admin: 03/21/18 11:44 Dose: 125 mls/hr Cefazolin Sodium/Dextrose (Kefzol 1 Gm In Dextrose Duplex (*)) 1 gm in 50 mls @ 200 mls/hr IVPB Q8H [facility] Last Admin: 03/21/18 06:49 Dose: 200 mls/hr Lactated Ringer's (Lactated Ringers 1000 Ml Bag*) 1,000 mls @ 1,000 mls/hr IV .[facility] Lamotrigine (Lamictal Tab(*)) 100 mg PO BID [facility] Last Admin: 03/21/18 08:15 Dose: 100 mg Lorazepam (Ativan Tab(*)) 0.5 mg PO Q8H PRN PRN Reason: ANXIETY Losartan Potassium (Cozaar Tab*) 100 mg PO DAILY [facility] Morphine Sulfate (Morphine Vial*) 4 mg IV Q4H PRN PRN Reason: PAIN Last Admin: 03/20/18 12:04 Dose: 4 mg Multivitamins/Minerals (Theragran/Minerals Tab*) 1 tab PO DAILY [facility] Last Admin: 03/21/18 08:15 Dose: 1 tab Oxycodone HCl (Roxycodone Tab*) 5 mg PO Q4H PRN PRN Reason: PAIN - MODERATE TO SEVERE Last Admin: 03/21/18 08:14 Dose: 5 mg Vital Signs - 8 hr 03/21/18 03/21/18 03/21/18 05:18 07:52 08:00 Temperature 98.1 F Pulse Rate 73 Respiratory 16 16 18 Rate Blood Pressure 115/35 (mmHg) O2 Sat by Pulse 94 Oximetry 03/21/18 03/21/18 03/21/18 08:14 11:01 11:05 Temperature Pulse Rate 55 63 Respiratory 18 Rate Blood Pressure 55/37 86/58 (mmHg) O2 Sat by Pulse Oximetry Oxygen Devices in Use Now: None Appearance: Patient is a 72yo female who appears stated age and is sitting in the bed in [facility]. Eyes: No Scleral Icterus, PERRLA Ears/Nose/Mouth/Throat: NL Teeth, Lips, Gums, Clear Oropharnyx, Mucous Membranes Moist Neck: NL Appearance and Movements; NL JVP, Trachea Midline Respiratory: Symmetrical Chest Expansion and Respiratory Effort, Clear to Auscultation Cardiovascular: NL Sounds; No Murmurs; No JVD, RRR, No Edema Abdominal: NL Sounds; No Tenderness; No Distention, No Hepatosplenomegaly Lymphatic: No Cervical Adenopathy Extremities: No Edema, No Clubbing, Cyanosis Skin: No Nodules or Sclerosis, - - Right hip incision covered by bulky dressing. Neurological: Alert and Oriented x 3, NL Sensation, NL Muscle Strength and Tone , - - CN II-XII intact. Result Diagrams: 03/21/18 10:38 03/21/18 10:38 Assess/Plan/Problems-Billing Assessment: Ms. Yancey is a 72 y.o female with a history of HTN, anxiety and epilepsy who presented to to the ER for right hip pain after a fall. Haseeb was found to have a fractured right hip which underwent fixation on 03/20 with orthopedics. - Patient Problems (1) Hip fracture, right Current Visit: Yes Status: Acute Code(s): S72.001A - FRACTURE OF UNSP PART OF NECK OF RIGHT FEMUR, INIT SNOMED Code(s): 211571223 Comment: S/P repair. management per orthopedics PT/OT per orthopedics Pain management per ortho Roth removed this AM without spontaneous urination yet, passing flatus, pain under control. (2) Orthostatic hypotension Current Visit: Yes Status: Acute Code(s): I95.1 - ORTHOSTATIC HYPOTENSION SNOMED Code(s): 50940727 Comment: Causing presyncope, no palpitations before the event and slowly subsiding afterwards likely representing normal physiological response to Low BP. Likely due to post-surgical state. Bolus and then continue fluids. No additional cardiac workup indicated. No chest pain, SOB, N/V, classic prodrome for neurocardiogenic syncope. (3) Anxiety Current Visit: Yes Status: Acute Code(s): F41.9 - ANXIETY DISORDER, UNSPECIFIED SNOMED Code(s): 43712914 Comment: stable will continue lexapro and supportive care as needed (4) Epilepsy Current Visit: Yes Status: Acute Code(s): G40.909 - EPILEPSY, UNSP, NOT INTRACTABLE, WITHOUT STATUS EPILEPTICUS SNOMED Code(s): 87972717 Comment: stable - no seizure in 12 years will continue lamictal Seizure precautions. (5) Hypertension Current Visit: Yes Status: Acute Code(s): I10 - ESSENTIAL (PRIMARY) HYPERTENSION SNOMED Code(s): 11016119 Comment: Continue home medications with hold parameters. Held HCTZ this AM. (6) DVT prophylaxis Current Visit: Yes Status: Acute Code(s): ZXF9531 - SNOMED Code(s): 181227321 Comment: Lovenox (7) Full code status Current Visit: Yes Status: Acute Code(s): Z78.9 - OTHER SPECIFIED HEALTH STATUS SNOMED Code(s): 704208754 Status and Disposition: inpatient
[2018-03-21] MEDS: Acetaminophen TAB* 325 MG PO PRN ×2 (13:39→20:03)
--- NOTE | 2018-03-21 15:34 | PN ---
Progress Note - Progress Note Date of Service: 03/21/18 SOAP: Subjective: []Patient seen at bedside. She feels well with minimal hip pain. Denies chest pain, shortness of breath, dizziness, nausea. Objective: [] Vital Signs Temp 98.1 F 03/21/18 07:52 Pulse 69 03/21/18 13:24 Resp 18 03/21/18 13:42 BP 131/43 03/21/18 13:24 Pulse Ox 99 03/21/18 13:24 Intake & Output 03/20/18 03/21/18 03/21/18 18:59 06:59 18:59 Intake Total 4403 123 7889 Output Total 700 875 250 Balance 163 28 9564 Intake: IV Fluids 1050 592 990 LR 1000 592 NS 990 NS 50ML, Cefazolin 1G 50 IVPB 55 55 ABX - CEFAZOLIN 55 55 Oral 25 260 745 Output: Roth 400 875 250 Estimated Blood Loss 300 Other: # Bowel Movements 0 # Voids 1 Laboratory Last Values WBC 12.9 10^3/ul (3.5-10.8) H 03/21/18 10:38 RBC 3.12 10^6/ul (4.0-5.4) L 03/21/18 10:38 Hgb 9.1 g/dl (12.0-16.0) L 03/21/18 10:38 Hct 27 % (35-47) L 03/21/18 10:38 MCV 86 fL (80-97) 03/21/18 10:38 MCH 29 pg (27-31) 03/21/18 10:38 MCHC 34 g/dl (31-36) 03/21/18 10:38 RDW 15 % (10.5-15) 03/21/18 10:38 Plt Count 150 10^3/ul (150-450) 03/21/18 10:38 MPV 8.3 um3 (7.4-10.4) 03/21/18 10:38 Neut % (Auto) 83.8 % (38-83) H 03/21/18 10:38 Lymph % (Auto) 9.3 % (25-47) L 03/21/18 10:38 [place] % (Auto) 6.6 % (0-7) 03/21/18 10:38 Eos % (Auto) 0.1 % (0-6) 03/21/18 10:38 Baso % (Auto) 0.2 % (0-2) 03/21/18 10:38 Absolute Neuts (auto) 10.8 10^3/ul (1.5-7.7) H 03/21/18 10:38 Absolute Lymphs (auto) 1.2 10^3/ul (1.0-4.8) 03/21/18 10:38 Absolute Monos (auto) 0.9 10^3/ul (0-0.8) H 03/21/18 10:38 Absolute Eos (auto) 0 10^3/ul (0-0.6) 03/21/18 10:38 Absolute Basos (auto) 0 10^3/ul (0-0.2) 03/21/18 10:38 Absolute Nucleated RBC 0 10^3/ul 03/21/18 10:38 Nucleated RBC % 0 03/21/18 10:38 INR (Anticoag Therapy) 0.98 (0.77-1.02) 03/20/18 04:57 APTT 31.6 seconds (26.0-36.3) 03/19/18 20:08 Sodium 140 mmol/L (139-145) 03/21/18 10:38 Potassium 4.0 mmol/L (3.5-5.0) 03/21/18 10:38 Chloride 106 mmol/L (101-111) 03/21/18 10:38 Carbon Dioxide 30 mmol/L (22-32) 03/21/18 10:38 Anion Gap 4 mmol/L (2-11) 03/21/18 10:38 BUN 15 mg/dL (6-24) 03/21/18 10:38 Creatinine 0.76 mg/dL (0.51-0.95) 03/21/18 10:38 Est GFR ( Amer) 95.7 (>60) 03/21/18 10:38 Est GFR (Non-Af Amer) 74.4 (>60) 03/21/18 10:38 BUN/Creatinine Ratio 19.7 (8-20) 03/21/18 10:38 Glucose 117 mg/dL (70-100) H 03/21/18 10:38 Calcium 8.4 mg/dL (8.6-10.3) L 03/21/18 10:38 Total Bilirubin 0.30 mg/dL (0.2-1.0) 03/19/18 20:08 AST 17 U/L (13-39) 03/19/18 20:08 ALT 14 U/L (7-52) 03/19/18 20:08 Alkaline Phosphatase 123 U/L (34-104) H 03/19/18 20:08 Total Protein 6.7 g/dL (6.4-8.9) 03/19/18 20:08 Albumin 4.2 g/dL (3.2-5.2) 03/19/18 20:08 Globulin 2.5 g/dL (2-4) 03/19/18 20:08 Albumin/Globulin Ratio 1.7 (1-3) 03/19/18 20:08 Blood Type O Negative 03/19/18 20:08 Antibody Screen Negative 03/19/18 20:08 General: Well appearing NAD RLE: Dressing CDI without surrounding erythema. Thigh is soft. DF/PF intact. DP2 +. Sensation intact and capillary refill less than two seconds distally. BL LE: Calves supple and nontender without erythema, edema or palpable cords. Assessment: []POD 1 sp ORIF right hip Dr Cuello Plan: []WBAT PT/OT First dressing change 03/22 Lovenox as DVT prophylaxis
[2018-03-21] MEDS: Enoxaparin(*) 30 MG/0.3 ML SYR SUBCUT SCH (17:18)
[2018-03-22] MEDS: Acetaminophen TAB* 325 MG PO PRN ×3 (01:58→22:57)
[2018-03-22 05:39] LABS: Hematocrit 24 % (35-47); Hemoglobin 8.1 g/dl (12.0-16.0)
--- NOTE | 2018-03-22 08:12 | PN ---
Progress Note - Progress Note Date of Service: 03/22/18 SOAP: Subjective: 72 y/o female s/p ORIF R hip by Dr. Cuello 03/20. Patient feeling well, pain controlled, was up to bathroom today, asympotomatic. Eager to work with PT. VSS, afebrile overnight. Objective: General- Well appearing, NAD, AO, resting in bed comfortably. MSK- RLE- DF/PF = b/l, PT 2+, negative homans sign, dressing changed, i c/d/i, no drainage, redness. mary beth intact, new dressing placed. mild edema. Vital Signs Temp 98.9 F 03/22/18 08:10 Pulse 78 03/22/18 08:10 Resp 20 03/22/18 08:10 BP 156/53 03/22/18 08:10 Pulse Ox 94 03/22/18 08:10 Intake & Output 03/21/18 03/22/18 03/22/18 18:59 06:59 18:59 Intake Total 1790 1145 Output Total 250 250 Balance 1540 895 Intake: IV Fluids 990 1045 ABX - CEFAZOLIN 50 NS 990 995 IVPB 55 ABX - CEFAZOLIN 55 Oral 745 100 Output: Urine 250 Roth 250 Other: # Voids 1 Assessment: Stable 72 y/o female s/p ORIF R hip by Dr. Cuello 03/20. Plan: - Hypotension yesterday, improved since overnight, orthostatics today. Patient anxious about returning home, will work with PT. Hospitalists would like to monitor BP for 24hours to ensure no further episodes. - DVT prophylaxis- lovenox, coumadin - Continue PT/ OT - Follow up with Dr. Cuello within 10-14 days - H&H - stable - post-op IV ABX - completed - Bowel regimen added - LIkely D/C to home tomorrow Acetaminophen (Tylenol Tab*) 650 mg PO Q6H PRN PRN Reason: PAIN Last Admin: 03/22/18 01:58 Dose: 650 mg Al Hydrox/Mg Hydrox/Simethicone (Maalox Plus*) 30 ml PO Q6H PRN PRN Reason: INDIGESTION Calcium Carbonate (Calcium Carbonate Tab*) 1,250 mg PO BID [facility] Last Admin: 03/21/18 20:02 Dose: 1,250 mg Citalopram Hydrobromide (Celexa Tab*) 20 mg PO DAILY [facility] Last Admin: 03/21/18 08:15 Dose: 20 mg Docusate Sodium (Colace Cap*) 200 mg PO BID [facility] Last Admin: 03/21/18 20:03 Dose: 200 mg Enoxaparin Sodium (Lovenox(*)) 30 mg SUBCUT Q24H [facility] Last Admin: 03/21/18 17:18 Dose: 30 mg Hydrochlorothiazide (Hydrodiuril Tab*) 25 mg PO DAILY [facility] Sodium Chloride (Ns 0.9% 1000 Ml*) 1,000 mls @ 100 mls/hr IV PER RATE [facility] Last Admin: 03/21/18 11:44 Dose: 100 mls/hr Lactated Ringer's (Lactated Ringers 1000 Ml Bag*) 1,000 mls @ 125 mls/hr IV PER RATE [facility] Last Admin: 03/22/18 00:37 Dose: 125 mls/hr Lactated Ringer's (Lactated Ringers 1000 Ml Bag*) 1,000 mls @ 1,000 mls/hr IV .BOLUS [facility] Lamotrigine (Lamictal Tab(*)) 100 mg PO BID [facility] Last Admin: 03/21/18 20:04 Dose: 100 mg Lorazepam (Ativan Tab(*)) 0.5 mg PO Q8H PRN PRN Reason: ANXIETY Losartan Potassium (Cozaar Tab*) 100 mg PO DAILY [facility] Morphine Sulfate (Morphine Vial*) 4 mg IV Q4H PRN PRN Reason: PAIN Last Admin: 03/20/18 12:04 Dose: 4 mg Multivitamins/Minerals (Theragran/Minerals Tab*) 1 tab PO DAILY [facility] Last Admin: 03/21/18 08:15 Dose: 1 tab Oxycodone HCl (Roxycodone Tab*) 5 mg PO Q4H PRN PRN Reason: PAIN - MODERATE TO SEVERE Last Admin: 03/21/18 08:14 Dose: 5 mg
[2018-03-22] MEDS: Citalopram TAB* 20 MG PO SCH (10:28)
[2018-03-22] MEDS: Calcium Carbonate TAB* 1250 MG (CALCIUM 500 MG) PO SCH ×2 (10:29→21:34)
[2018-03-22] MEDS: Multivitamins/Minerals TAB PO SCH (10:29)
[2018-03-22] MEDS: Docusate CAP* 100 MG PO SCH ×2 (10:29→21:35)
[2018-03-22] MEDS: lamoTRIgine TAB(*) 100 MG PO SCH ×2 (10:29→21:34)
[2018-03-22] MEDS: Losartan TAB* 25 MG PO SCH (10:30)
[2018-03-22] MEDS: Hydrochlorothiazide TAB* 25 MG PO SCH (10:30)
[2018-03-22] MEDS: oxyCODONE TAB* 5 MG TAB PO PRN (10:30)
[2018-03-22] MEDS: NS 0.9% 1000 ML* 1,000 ML IV SCH ×2 (10:47→21:34)
[2018-03-22] MEDS ORDERED: Magnesium Hydroxide LIQ* 30 ML UDC PO PRN (10:59)
[2018-03-22] MEDS ORDERED: Bisacodyl SUPP* 10 MG SUPP PR PRN (10:59)
[2018-03-22] MEDS ORDERED: Lactulose* 15 ML UDC PO PRN (10:59)
--- NOTE | 2018-03-22 12:12 | PN ---
Subjective Date of Service: 03/22/18 Interval History: Patient denies dizziness today, was able to stand up and take a few steps to the commode today without lightheadedness. Patient states that she had a third episode of dizziness yesterday when standing. Patient states that her Doxazosin was recently changed from 4 to 8 mg nightly. Patient denies F/C, N/V, abdominal pain, diarrhea, patient is passing flatus, has been urinating without difficulty. Patient also denies palpitations, CP, SOB, or other pain. States no pain in hip at rest. Family History: Unchanged from Admission Social History: Unchanged from Admission Past Medical History: Unchanged from Admission Objective Active Medications: Acetaminophen (Tylenol Tab*) 650 mg PO Q6H PRN PRN Reason: PAIN Last Admin: 03/22/18 01:58 Dose: 650 mg Al Hydrox/Mg Hydrox/Simethicone (Maalox Plus*) 30 ml PO Q6H PRN PRN Reason: INDIGESTION Bisacodyl (Dulcolax Supp*) 10 mg [place] DAILY PRN PRN Reason: CONSTIPATION Calcium Carbonate (Calcium Carbonate Tab*) 1,250 mg PO BID [facility] Last Admin: 03/22/18 10:29 Dose: 1,250 mg Citalopram Hydrobromide (Celexa Tab*) 20 mg PO DAILY [facility] Last Admin: 03/22/18 10:28 Dose: 20 mg Docusate Sodium (Colace Cap*) 200 mg PO BID [facility] Last Admin: 03/22/18 10:29 Dose: 200 mg Enoxaparin Sodium (Lovenox(*)) 30 mg SUBCUT Q24H [facility] Last Admin: 03/21/18 17:18 Dose: 30 mg Hydrochlorothiazide (Hydrodiuril Tab*) 25 mg PO DAILY [facility] Last Admin: 03/22/18 10:30 Dose: 25 mg Sodium Chloride (Ns 0.9% 1000 Ml*) 1,000 mls @ 100 mls/hr IV PER RATE [facility] Last Admin: 03/22/18 10:47 Dose: 100 mls/hr Lactated Ringer's (Lactated Ringers 1000 Ml Bag*) 1,000 mls @ 125 mls/hr IV PER RATE [facility] Last Admin: 03/22/18 00:37 Dose: 125 mls/hr Lactated Ringer's (Lactated Ringers 1000 Ml Bag*) 1,000 mls @ 1,000 mls/hr IV .BOLUS [facility] Lactulose (Lactulose*) 15 ml PO TID PRN PRN Reason: CONSTIPATION Lamotrigine (Lamictal Tab(*)) 100 mg PO BID [facility] Last Admin: 03/22/18 10:29 Dose: 100 mg Lorazepam (Ativan Tab(*)) 0.5 mg PO Q8H PRN PRN Reason: ANXIETY Losartan Potassium (Cozaar Tab*) 100 mg PO DAILY [facility] Last Admin: 03/22/18 10:30 Dose: 100 mg Magnesium Hydroxide (Milk Of Magnesia Liq*) 30 ml PO Q4H PRN PRN Reason: constipation Morphine Sulfate (Morphine Vial*) 4 mg IV Q4H PRN PRN Reason: PAIN Last Admin: 03/20/18 12:04 Dose: 4 mg Multivitamins/Minerals (Theragran/Minerals Tab*) 1 tab PO DAILY [facility] Last Admin: 03/22/18 10:29 Dose: 1 tab Oxycodone HCl (Roxycodone Tab*) 5 mg PO Q4H PRN PRN Reason: PAIN - MODERATE TO SEVERE Last Admin: 03/22/18 10:30 Dose: 5 mg Vital Signs - 8 hr 03/22/18 03/22/18 08:10 10:30 Temperature 98.9 F Pulse Rate 78 Respiratory 20 16 Rate Blood Pressure 156/53 (mmHg) O2 Sat by Pulse 94 Oximetry Oxygen Devices in Use Now: None Appearance: Patient is a pale 72yo female who appears stated age and is sitting in the bed in [facility]. Eyes: No Scleral Icterus, PERRLA Ears/Nose/Mouth/Throat: NL Teeth, Lips, Gums, Clear Oropharnyx, Mucous Membranes Moist Neck: NL Appearance and Movements; NL JVP, Trachea Midline Respiratory: Symmetrical Chest Expansion and Respiratory Effort, Clear to Auscultation Cardiovascular: NL Sounds; No Murmurs; No JVD, RRR, - - Trace edema. Abdominal: NL Sounds; No Tenderness; No Distention, No Hepatosplenomegaly Lymphatic: No Cervical Adenopathy Extremities: No Edema, No Clubbing, Cyanosis Skin: No Nodules or Sclerosis, - - Right hip incision covered with CDI dressing. Neurological: Alert and Oriented x 3, NL Sensation, NL Muscle Strength and Tone , - - CN II-XII intact. Result Diagrams: 03/22/18 05:08 03/21/18 10:38 Assess/Plan/Problems-Billing Assessment: Ms. Yancey is a 72 y.o female with a history of HTN, anxiety and epilepsy who presented to to the ER for right hip pain after a fall. Haseeb was found to have a fractured right hip which underwent fixation on 03/20 with orthopedics. - Patient Problems (1) Hip fracture, right Current Visit: Yes Status: Acute Code(s): S72.001A - FRACTURE OF UNSP PART OF NECK OF RIGHT FEMUR, INIT SNOMED Code(s): 030023649 Comment: S/P repair, Management per orthopedics PT/OT per orthopedics Pain management adequate. Roth removed with urination. Patient has not had a BM yet. (2) Orthostatic hypotension Current Visit: Yes Status: Acute Code(s): I95.1 - ORTHOSTATIC HYPOTENSION SNOMED Code(s): 39743006 Comment: Causing presyncope, no palpitations before the event and slowly subsiding afterwards likely representing normal physiological response to Low BP. Likely due to post-surgical state. Bolus and then continue fluids. No additional cardiac workup indicated. No chest pain, SOB, N/V. Classic prodrome for neurocardiogenic syncope. Patient recently had doxazosin dose doubled. Will hold this at discharge and adjust up other meds if necessary for adequate BP control. (3) Anxiety Current Visit: Yes Status: Acute Code(s): F41.9 - ANXIETY DISORDER, UNSPECIFIED SNOMED Code(s): 91568703 Comment: stable will continue lexapro and supportive care as needed (4) Epilepsy Current Visit: Yes Status: Acute Code(s): G40.909 - EPILEPSY, UNSP, NOT INTRACTABLE, WITHOUT STATUS EPILEPTICUS SNOMED Code(s): 57194797 Comment: stable - no seizure in 12 years will continue lamictal Seizure precautions. (5) Hypertension Current Visit: Yes Status: Acute Code(s): I10 - ESSENTIAL (PRIMARY) HYPERTENSION SNOMED Code(s): 64552420 Comment: Continue Losartan and HCTZ. Hold Doxazosin. (6) DVT prophylaxis Current Visit: Yes Status: Acute Code(s): UHL1849 - SNOMED Code(s): 590031152 Comment: Lovenox (7) Full code status Current Visit: Yes Status: Acute Code(s): Z78.9 - OTHER SPECIFIED HEALTH STATUS SNOMED Code(s): 718027487 Status and Disposition: Inpatient, Hopeful discharge tomorrow.
[2018-03-22] MEDS: Enoxaparin(*) 30 MG/0.3 ML SYR SUBCUT SCH (17:10)
[2018-03-23 06:29] LABS: ABS Basophils 0.1 10^3/ul (0-0.2); ABS Eosinophils 0.3 10^3/ul (0-0.6); ABS Lymphocytes 1.3 10^3/ul (1.0-4.8); ABS Monocytes 0.9 10^3/ul (0-0.8); ABS Neutrophils 6.4 10^3/ul (1.5-7.7); ABS Nucleated RBC 0 10^3/ul; Eosinophil % 3.4 % (0-6); Hematocrit 23 % (35-47); Hemoglobin 8.1 g/dl (12.0-16.0); Lymphocyte % 14.9 % (25-47); Mean Corpuscular HGB Conc 35 g/dl (31-36); Mean Corpuscular Hemoglobin 30 pg (27-31); Mean Corpuscular Volume 85 fL (80-97); Mean Platelet Volume 8.8 um3 (7.4-10.4); Nucleated Red Blood Cells % 0; Platelet Count 124 10^3/ul (150-450); Red Cell Distribution Width 15 % (10.5-15); White Blood Count 8.9 10^3/ul (3.5-10.8)
[2018-03-23] MEDS: Acetaminophen TAB* 325 MG PO PRN ×3 (06:34→17:24)
[2018-03-23 06:46] LABS: EGFR Non-African American 99.6 (>60)
[2018-03-23] MEDS ORDERED: Potassium Chloride LIQUID* 20 MEQ PACKET PO ONE (06:53)
[2018-03-23] MEDS: Hydrochlorothiazide TAB* 25 MG PO SCH (08:06)
[2018-03-23] MEDS: Losartan TAB* 25 MG PO SCH (08:06)
[2018-03-23] MEDS: Multivitamins/Minerals TAB PO SCH (08:07)
[2018-03-23] MEDS: lamoTRIgine TAB(*) 100 MG PO SCH ×2 (08:07→22:03)
[2018-03-23] MEDS: Calcium Carbonate TAB* 1250 MG (CALCIUM 500 MG) PO SCH ×2 (08:07→22:02)
[2018-03-23] MEDS: Citalopram TAB* 20 MG PO SCH (08:07)
[2018-03-23] MEDS: Docusate CAP* 100 MG PO SCH ×2 (08:08→22:03)
[2018-03-23] MEDS: amLODIPine TAB* 5 MG PO SCH (11:15)
--- NOTE | 2018-03-23 11:27 | PN ---
Progress Note - Progress Note Date of Service: 03/23/18 SOAP: Subjective: 72 yo female s/p R hip ORIF with Dr. Cuello on 03/20/18. Patient's pain is well controlled. Worked with PT earlier and did well. Pain well controlled. She was held overnight 2/2 orthostasis yesterday, Hospital service wanted to monitor overnight. Denies N/V, calf pain, chest pain, SOB, numbness, tingling, dizziness , weakness today. VSS. Afebrile overnight. Objective: Vital Signs Temp 98.9 F 03/23/18 07:33 Pulse 73 03/23/18 07:33 Resp 18 03/23/18 08:10 BP 154/62 03/23/18 07:33 Pulse Ox 95 03/23/18 07:33 Intake & Output 03/22/18 03/23/18 03/23/18 18:59 06:59 18:59 Intake Total 1920 1657 978 Output Total 200 1100 350 Balance 1720 557 628 Intake: IV Fluids 1000 997 978 LR 1000 NS 997 978 Oral 920 660 Output: Urine 200 1100 350 Other: Estimated Void Medium # Bowel Movements 1 Estimated Stool Amount Medium # Voids 1 Laboratory Results - last 24 hr 03/23/18 03/23/18 06:04 06:04 WBC 8.9 RBC 2.70 L Hgb 8.1 L Hct 23 L MCV 85 MCH 30 MCHC 35 RDW 15 Plt Count 124 L MPV 8.8 Neut % (Auto) 71.5 Lymph % (Auto) 14.9 L [place] % (Auto) 9.6 H Eos % (Auto) 3.4 Baso % (Auto) 0.6 Absolute Neuts (auto) 6.4 Absolute Lymphs (auto) 1.3 Absolute Monos (auto) 0.9 H Absolute Eos (auto) 0.3 Absolute Basos (auto) 0.1 Absolute Nucleated RBC 0 Nucleated RBC % 0 Sodium 140 Potassium 3.4 L Chloride 107 Carbon Dioxide 27 Anion Gap 6 BUN 10 Creatinine 0.59 Est GFR ( Amer) 128.1 Est GFR (Non-Af Amer) 99.6 BUN/Creatinine Ratio 16.9 Glucose 99 Calcium 8.0 L General: WN, WD, NAD, AO, sitting comfortably in chair. MSK: Right hip incisions have intact mary beth, no drainage, erythema, warmth. New dressing placed. Mild edema thigh. Calf soft. DF/PF intact, 2+ DP pulse, sensation grossly intact to light touch. Assessment: POD #3 S/P ORIF right hip by Dr. Cuello on 03/20. Plan: - No episodes of hypotension overnight. Hospitalist to clear for discharge when ready. - DVT prophylaxis- lovenox, coumadin. Currently on lovenox, will need coumadin on D/C. - Continue PT/ OT - Follow up with Dr. Cuello within 10-14 days - H&H - stable - Bowel movement today - Likely D/C to home today
--- NOTE | 2018-03-23 13:18 | PN ---
Subjective Date of Service: 03/23/18 Interval History: Patient denies any issues with dizziness overnight. Patient also denies CP, SOB , N/V, Abdominal pain, diarrhea, Dysuria, [place], Changes in vision. Patient rates the pain in her hip at around 3/10. Patient states that she does not feel she could function at home in her current states due to her not being able to help and a new dog in the house which frequently jumps on her. Patient would like to go to rehab until she regains her strength. Family History: Unchanged from Admission Social History: Unchanged from Admission Past Medical History: Unchanged from Admission Objective Active Medications: Acetaminophen (Tylenol Tab*) 650 mg PO Q6H PRN PRN Reason: PAIN Last Admin: 03/23/18 11:14 Dose: 650 mg Al Hydrox/Mg Hydrox/Simethicone (Maalox Plus*) 30 ml PO Q6H PRN PRN Reason: INDIGESTION Amlodipine Besylate (Norvasc Tab*) 5 mg PO DAILY [facility] Last Admin: 03/23/18 11:15 Dose: 5 mg Bisacodyl (Dulcolax Supp*) 10 mg [place] DAILY PRN PRN Reason: CONSTIPATION Calcium Carbonate (Calcium Carbonate Tab*) 1,250 mg PO BID [facility] Last Admin: 03/23/18 08:07 Dose: 1,250 mg Citalopram Hydrobromide (Celexa Tab*) 20 mg PO DAILY [facility] Last Admin: 03/23/18 08:07 Dose: 20 mg Docusate Sodium (Colace Cap*) 200 mg PO BID [facility] Last Admin: 03/23/18 08:08 Dose: Not Given Enoxaparin Sodium (Lovenox(*)) 30 mg SUBCUT Q24H [facility] Last Admin: 03/22/18 17:10 Dose: 30 mg Hydrochlorothiazide (Hydrodiuril Tab*) 25 mg PO DAILY [facility] Last Admin: 03/23/18 08:06 Dose: 25 mg Lactated Ringer's (Lactated Ringers 1000 Ml Bag*) 1,000 mls @ 1,000 mls/hr IV .BOLUS [facility] Lactulose (Lactulose*) 15 ml PO TID PRN PRN Reason: CONSTIPATION Lamotrigine (Lamictal Tab(*)) 100 mg PO BID [facility] Last Admin: 03/23/18 08:07 Dose: 100 mg Lorazepam (Ativan Tab(*)) 0.5 mg PO Q8H PRN PRN Reason: ANXIETY Losartan Potassium (Cozaar Tab*) 100 mg PO DAILY [facility] Last Admin: 03/23/18 08:06 Dose: 100 mg Magnesium Hydroxide (Milk Of Magnesia Liq*) 30 ml PO Q4H PRN PRN Reason: constipation Morphine Sulfate (Morphine Vial*) 4 mg IV Q4H PRN PRN Reason: PAIN Last Admin: 03/20/18 12:04 Dose: 4 mg Multivitamins/Minerals (Theragran/Minerals Tab*) 1 tab PO DAILY [facility] Last Admin: 03/23/18 08:07 Dose: 1 tab Oxycodone HCl (Roxycodone Tab*) 5 mg PO Q4H PRN PRN Reason: PAIN - MODERATE TO SEVERE Last Admin: 03/22/18 10:30 Dose: 5 mg Vital Signs - 8 hr 03/23/18 03/23/18 07:33 08:10 Temperature 98.9 F Pulse Rate 73 Respiratory 16 18 Rate Blood Pressure 154/62 (mmHg) O2 Sat by Pulse 95 Oximetry Oxygen Devices in Use Now: None Appearance: Patient is a 72yo female who appears stated age and is sitting in the bed in [facility]. Eyes: No Scleral Icterus, PERRLA Ears/Nose/Mouth/Throat: NL Teeth, Lips, Gums, Clear Oropharnyx, Mucous Membranes Moist Neck: NL Appearance and Movements; NL JVP, Trachea Midline Respiratory: Symmetrical Chest Expansion and Respiratory Effort, Clear to Auscultation Cardiovascular: NL Sounds; No Murmurs; No JVD, RRR, No Edema Abdominal: NL Sounds; No Tenderness; No Distention, No Hepatosplenomegaly Lymphatic: No Cervical Adenopathy Extremities: No Edema, No Clubbing, Cyanosis Skin: No Nodules or Sclerosis, - Neurological: Alert and Oriented x 3, NL Sensation, NL Muscle Strength and Tone Result Diagrams: 03/23/18 06:04 03/23/18 06:04 Assess/Plan/Problems-Billing Assessment: Ms. Yancey is a 72 y.o female with a history of HTN, anxiety and epilepsy who presented to to the ER for right hip pain after a fall. Patinet was found to have a fractured right hip which underwent fixation on 03/20 with orthopedics. - Patient Problems (1) Hip fracture, right Current Visit: Yes Status: Acute Code(s): S72.001A - FRACTURE OF UNSP PART OF NECK OF RIGHT FEMUR, INIT SNOMED Code(s): 653456750 Comment: S/P repair, Management per orthopedics PT/OT per orthopedics Pain management adequate. Roth removed with urination. Patient had a BM today. (2) Orthostatic hypotension Current Visit: Yes Status: Acute Code(s): I95.1 - ORTHOSTATIC HYPOTENSION SNOMED Code(s): 41980188 Comment: Causing presyncope, no palpitations before the event and slowly subsiding afterwards likely representing normal physiological response to Low BP. Likely due to post-surgical state. Bolus and then continue fluids. No additional cardiac workup indicated. No chest pain, SOB, N/V. Classic prodrome for neurocardiogenic syncope. Patient recently had doxazosin dose doubled. Will hold this at discharge. Started amlodipine for blood pressure control. (3) Anxiety Current Visit: Yes Status: Acute Code(s): F41.9 - ANXIETY DISORDER, UNSPECIFIED SNOMED Code(s): 45840746 Comment: stable will continue lexapro and supportive care as needed (4) Epilepsy Current Visit: Yes Status: Acute Code(s): G40.909 - EPILEPSY, UNSP, NOT INTRACTABLE, WITHOUT STATUS EPILEPTICUS SNOMED Code(s): 11648076 Comment: stable - no seizure in 12 years will continue lamictal Seizure precautions. (5) Hypertension Current Visit: Yes Status: Acute Code(s): I10 - ESSENTIAL (PRIMARY) HYPERTENSION SNOMED Code(s): 79480285 Comment: Continue Losartan and HCTZ. Hold Doxazosin. Start Amlodipine. (6) DVT prophylaxis Current Visit: Yes Status: Acute Code(s): JOF3857 - SNOMED Code(s): 414238486 Comment: Lovenox (7) Full code status Current Visit: Yes Status: Acute Code(s): Z78.9 - OTHER SPECIFIED HEALTH STATUS SNOMED Code(s): 897159189 Status and Disposition: Inpatient. Plan for DANIELLE at discharge when available.
[2018-03-23] MEDS: Enoxaparin(*) 30 MG/0.3 ML SYR SUBCUT SCH (17:24)
[2018-03-23] MEDS: oxyCODONE TAB* 5 MG TAB PO PRN (22:04)
[2018-03-24 05:29] LABS: Hematocrit 24 % (35-47); Hemoglobin 8.4 g/dl (12.0-16.0)
[2018-03-24] MEDS: Docusate CAP* 100 MG PO SCH (08:22)
[2018-03-24] MEDS: Acetaminophen TAB* 325 MG PO PRN (08:40)
[2018-03-24] MEDS: lamoTRIgine TAB(*) 100 MG PO SCH (08:41)
[2018-03-24] MEDS: Calcium Carbonate TAB* 1250 MG (CALCIUM 500 MG) PO SCH (08:41)
[2018-03-24] MEDS: amLODIPine TAB* 5 MG PO SCH (08:41)
[2018-03-24] MEDS: Losartan TAB* 25 MG PO SCH (08:41)
[2018-03-24] MEDS: Multivitamins/Minerals TAB PO SCH (08:41)
[2018-03-24] MEDS: Citalopram TAB* 20 MG PO SCH (08:41)
[2018-03-24] MEDS: Hydrochlorothiazide TAB* 25 MG PO SCH (08:41)
--- NOTE | 2018-03-24 08:53 | PN ---
Progress Note - Progress Note Date of Service: 03/24/18 SOAP: Subjective: 72 yo female s/p R hip ORIF with Dr. Cuello on 03/20/18. Patient's pain is well controlled. Worked with PT earlier and did well. Pain well controlled. Denies N/ V, calf pain, chest pain, SOB, numbness, tingling, dizziness, weakness today. VSS. Afebrile overnight. Objective: Vital Signs Temp 99.0 F 03/24/18 07:45 Pulse 72 03/24/18 07:45 Resp 18 03/24/18 08:00 BP 168/55 03/24/18 07:45 Pulse Ox 95 03/24/18 07:45 Intake & Output 03/23/18 03/24/18 03/24/18 18:59 06:59 18:59 Intake Total 1318 200 200 Output Total 1950 300 Balance -632 -100 200 Intake: IV Fluids 978 NS 978 Oral 340 200 200 Output: Urine 1950 300 Other: Estimated Void Medium # Bowel Movements 1 Estimated Stool Amount Large Medium Laboratory Results - last 24 hr 03/24/18 04:53 Hgb 8.4 L Hct 24 L General: General: WN, WD, NAD, AO, lying comfortably in bed. MSK: Right hip incisions have intact mary beth, no drainage, erythema, warmth. New dressing placed. Mild edema thigh. Calf soft. DF/PF intact, 2+ DP pulse, sensation grossly intact to light touch. Assessment: POD #4 S/P ORIF right hip by Dr. Cuello on 03/20. Plan: - No episodes of hypotension overnight. - DVT prophylaxis- lovenox, coumadin. Currently on lovenox, will need coumadin on D/C. - Continue PT/ OT - Follow up with Dr. Cuello within 10-14 days - H&H - stable - Patient prefers discharge to [facility], likely tomorrow.
[2018-03-24 12:38] VITALS: BP 147/49
[2018-03-24] MEDS ORDERED: Warfarin TAB(*) 5 MG PO ONE (17:00)
--- NOTE | 2018-03-25 02:30 | DS ---
CC: Dr. Higuera * DISCHARGE SUMMARY: DATE OF ADMISSION: 03/19/18 DATE OF DISCHARGE: 03/24/18 PRIMARY CARE PROVIDER: Dr. Higuera. MY ATTENDING WHILE IN THE HOSPITAL: Eli Woodson MD * (DICTATED BY MARISOL GROSS) PRIMARY DISCHARGE DIAGNOSES: 1. Right hip intertrochanteric fracture. 2. Orthostatic hypotension. SECONDARY DISCHARGE DIAGNOSES: 1. Hypertension. 2. Anxiety 3. History of epilepsy. CONSULTING PROVIDERS: Astrid Cuello MD, Orthopedics. STUDIES DONE WHILE IN THE HOSPITAL: Chest x-ray from 03/19/18 read as no active cardiopulmonary disease. Electrocardiogram from 03/19/18 shows normal sinus rhythm, no ST segment abnormalities, normal axis, no hypertrophy or enlargement, no abnormalities. Repeat EKG from 03/20/18 showed no significant changes from previous exam. Hip and pelvis x-ray from 03/19/18 read as slightly dilated intertrochanteric fracture of the right femur. Hip x-ray from 03/20/18 read as fluoroscopy. Femur x-ray from 03/20/18 read as nondisplaced right intertrochanteric fracture. MEDICATIONS AT DISCHARGE: 1. Lamotrigine 100 mg p.o. b.i.d. 2. Multivitamin 1 tablet p.o. daily. 3. Losartan/hydrochlorothiazide 1 tablet p.o. daily. 4. Lexapro 10 mg p.o. daily. 5. Calcium carbonate 500 mg p.o. b.i.d. 6. Tylenol 650 mg p.o. q.6 hours as needed. 7. Amlodipine 5 mg p.o. daily. 8. Oxycodone 5 mg p.o. q.6 hours as needed. 9. Warfarin 5 mg p.o. q.p.m. MEDICATION DISCONTINUED AT DISCHARGE: 1. Doxazosin 8 mg p.o. daily. NEW MEDICATIONS AT DISCHARGE: 1. Tylenol 2. Amlodipine. 3. Oxycodone. 4. Warfarin. HOSPITAL COURSE: This is a brief summary of the patient's presentation. For more details, please see the history and physical from Jacque Lepe NP, on 03/19/18. In brief, the patient is a 72-year-old female with past medical history significant for the above who presented with a mechanical fall with her shoe getting caught in the rug, she fell on her left hip. She was unable to move or ambulate. She stated there was significant pain immediately afterwards and not before. The patient had x-rays as above in the emergency department. The patient was admitted to the hospital. The patient had hypertensive urgency with blood pressure up to 182/107. She was treated with her home medications as well as hydralazine p.r.n. The patient was seen in consultation by Dr. Astrid Cuello and was taken to the emergency department on 03/20/18 when she had no complications, estimated EBL 400 cc. The patient on 03/21/18 had minimal pain, no other complications. Her hemoglobin dropped to 9.1, however, the patient was found to be severely orthostatically hypotensive upon standing with her lowest blood pressure being _ 55/37 with symptoms of presyncope. The patient had her doxazosin discontinued and had no other issues with hypotension. The patient was given a significant amount of fluids and her hemoglobin again dropped to 8.1 the next day likely representing dilutional change that stayed steady on 03/23/18, it increased to 8.4 on 03/24/18, the patient progressed from that point without complication, improved greatly with physical therapy. The patient had DVT prophylaxis with Lovenox. The patient stated initially that she felt with her physical limitations that she would like to go to rehab. This was being arranged; however, the patient made a very significant increase in her functional capacity being able to ambulate around the whole unit and upstairs with physical therapy and felt ready to go home. The patient was discharged home on 03/24/18. The patient was started on warfarin for DVT prophylaxis. The patient's doxazosin was replaced with amlodipine. The patient was slightly hypertensive on discharge. The patient was given her first dose of warfarin while in the hospital. PHYSICAL EXAM: General: The patient is a 72-year-old female, who appears stated age and sitting comfortably in bed in no acute distress. Vital signs at the time of discharge; temperature 98.6, pulse rate 75, respiratory rate 16, oxygen saturation 98% on room air, blood pressure 147/49. HEENT: Head normocephalic, atraumatic. Sclerae anicteric. No conjunctival injection. Nasal mucosa moist. Oral mucosa moist. No pharyngeal erythema, discharge or exudate. Neck: Supple, nontender. No lymphadenopathy. No carotid bruit auscultated. No JVD. Cardiac: Regular rate and rhythm. No clicks, murmurs, gallops or rubs. Pulses are 2+ in the bilateral dorsalis pedis, posterior tibialis and radial areas. No lower extremity calf tenderness noted. Respiratory: Clear to auscultation bilaterally. No wheezes, rales or rhonchi. Good air exchange bilaterally. Abdomen: Soft, nontender, nondistended. Bowel sounds present and normoactive in all 4 quadrants. No hepatosplenomegaly. No abdominal bruits auscultated. Genitourinary: No suprapubic or CVA tenderness. Skin: Clean, dry, and intact. No rashes except for right-sided surgical incision covered with a bulky dressing with no drainage. Neuro: Cranial nerves II through XII intact. Alert and oriented x3. No focal deficits. Psychiatric : Pleasant and cooperative. LABORATORY DATA FROM DAY OF DISCHARGE: Hemoglobin 8.4, hematocrit 24. Laboratory values of note from admission, white blood cell count 13.8 on day of admission, decreased to 8.9 on 03/23/18. Potassium 3.4 on 03/23/18 which was supplemented. DISCHARGE PLAN: The patient will be discharged to home. The patient will be started on warfarin. The patient will follow up with Orthopedics in 1 to 2 weeks. The patient will have her INR's monitored by Orthopedics. These will be drawn on Tuesdays and . The patient will have [facility]NS for PT and OT, as well as general medical management. The patient to follow up with primary care provider within 1 week for general medical management as well including discussing the discontinuation of her doxazosin, initiation of amlodipine and general control of her blood pressure. The patient should return to the hospital for alarming symptoms such as new onset worsening hip pain, chest pain , shortness of breath, syncope or presyncope. The patient should engage in activity as tolerated. The patient should have a heart healthy diet without caffeine. TIME SPENT: Approximately 60 minutes were spent on the discharge, 30 of which was spent [id number] with the patient, obtaining history and physical and discussing the treatment plan. MARISOL GROSS [id number]/[facility] #: [id number] MATTIE
== END 2018-03-24 14:39 | disposition home health service (06) | DRG 482 ==
LOC: ED 19:47 → SSU 22:19
PROVIDERS: ADMIT Hospitalist; ATTEND Internal Medicine
PROC: 0QS606Z Reposition Right Upper Femur with Intramedullary Internal Fixation Device, Open Approach (ICD-10-PCS; principal; 2018-03-20 13:00)
DX: S72.141A Displaced intertrochanteric fracture of right femur, initial encounter for closed fracture (principal); W07.XXXA Fall from chair, initial encounter; I10 Essential (primary) hypertension; F41.9 Anxiety disorder, unspecified; G40.909 Epilepsy, unspecified, not intractable, without status epilepticus; F32.9 Major depressive disorder, single episode, unspecified; M19.90 Unspecified osteoarthritis, unspecified site; Z90.49 Acquired absence of other specified parts of digestive tract; Z79.01 Long term (current) use of anticoagulants; Z79.899 Other long term (current) drug therapy; I16.0 Hypertensive urgency; M81.0 Age-related osteoporosis without current pathological fracture; Z80.0 Family history of malignant neoplasm of digestive organs; I95.1 Orthostatic hypotension; Y92.009 Unspecified place in unspecified non-institutional (private) residence as the place of occurrence of the external cause
CPT/HCPCS: 36415; 71045; 80048; 80053; 85014; 85018; 85025; 85610; 85730; 86850; 86900; 86901; 93005; 99284; A9270-GY; C1713; C1776; G8978-GP-CK; G8978-GP-CL; G8979-GP-CI; G8979-GP-CK; G8987-GO-CL; G8988-GO-CI; J0330; J0690; J1100; J1170; J1644; J1650; J2250; J2270; J2405; J2704; J3010

== ENCOUNTER 2019-03-15 11:52 | Emergency (ER) | payer MEDICARE ==
--- OUTSIDE RECORDS SUMMARY | 2019-03-15 12:49 | XMS REPORT | Continuity of Care Document ---
:1945 External Reference #:[id number] Author Name Servando Higuera M.D. Address [address] [facility] [address] [place] [address] Care Team Providers Name Role Phone HCP given Primary Care Physician Unavailable Payers Date Identification Numbers Payment Provider Subscriber Effective: 2018 Policy Number: [id number] [employer] Medicare Ppo Juhi Yancey PayID: [id number] [address] [place] [address] Advance Directives Description No Information Available Problems Date Description Provider Status Onset: 11/06/2007 Seizure Servando Higuera M.D. Active Onset: 11/06/2007 Benign essential hypertension Servando Higuera M.D. Active Onset: 11/06/2007 Migraine with typical aura Servando Higuera M.D. Active Onset: 11/06/2007 Pure hypercholesterolemia Servando Higuera M.D. Active Onset: 02/19/2009 Dos Santos's esophagus Servando Higuera M.D. Active Onset: 2011 Age related macular degeneration Servando Higuera M.D. Active Onset: 02/23/2014 Anxiety state Servando Higuera M.D. Active Onset: 02/23/2014 Dysthymia Servando Higuera M.D. Active Onset: 02/23/2014 Osteoporosis Servando Higuera M.D. Active Onset: 12/14/2015 Essential hypertension Servando Higuera M.D. Active Family History Date Family Member(s) Observation Comments Father No contact w/ her dad. He in his 70s, unsure of details. : (age 87 Mother due to GI Bleed "stomach aneurysm" Years) Mother Alcoholism Mother Macular Degeneration Mother CAD in later yrs Mother Parkinson's Disease Number of Children 4 Number of Siblings Siblings: 3 : (age 59 First Brother due to Pancreatic Years) Cancer : (age 18 Second Brother due to MVA Years) : (age 60 First Sister due to Aneurysm Years) Brain Social History Type Date Description Comments Sex Unknown Work Status Retired did secretarial work Tobacco Use Reviewed: 01/29/17 Never Smoked Cigarettes Smoking Status Reviewed: 01/29/17 Never Smoked Cigarettes ETOH Use Denies alcohol use Allergies, Adverse Reactions, Alerts Description No Known Drug Allergies Medications Medication Date Status Form Strength Qnty SIG Indications Ordering Provider Preservision 01/13/ Active Capsules Areds 2 1 soft gel H35.30 Unknown Areds 2 2019 2x/day for macular degeneration Amlodipine 04/23/ Active Tablets 10mg 90tab Take 1 Tablet I10 Silcoff, Besylate 2018 s By Mouth Once Servando Daily For M.DEboni High Blood Pressure Calcium 03/24/ Active Tablets 500mg one tab by Unknown Carbonate 2018 mouth twice a day Escitalopram 03/12/ Active Tablets 10mg 90tab 1 by mouth F34.1 Silcoff, Oxalate 2018 s every day for percy Al M.DEboni Losartan 05/01/ Active Tablets 100-25mg 90tab Take One I10 Sopchak, Potassium/Hydr 2016 s Tablet By Anastacio ochlorothiazid Mouth In The D.O. e Morning For High Blood Pressure Lamotrigine 03/18/ Active Tablets 100mg 1 po bid R56.9 Jonatan, Fela Kwon MD Amlodipine 04/16/ Hx Tablets 5mg 30tab 1 tablet by I10 Unknown Besylate 2018 - s mouth daily 04/23/ for high 2018 blood pressure Warfarin 03/24/ Hx Tablets 5mg 30tab 1 tablet by Unknown Sodium 2018 - s mouth every 04/17/ evening or as 2018 directed Oxycodone HCL 03/24/ Hx Tablets 5mg 15tab 1 tablet by Unknown 2018 - s mouth every 6 04/14/ hours as 2018 needed Multivitamin /06/ Hx Tablets 1 by mouth Unknown Adult 2018 - every day 2018 Tylenol 8 Hour 03/24/ Hx Tablets ER 650mg 1 tablet by Unknown 2018 - mouth every 6 02/16/ hours as 2019 needed Doxazosin 03/15/ Hx Tablets 8mg 90tab take 1 tablet I10 Silcoff, Mesylate 2018 - s every night Servnado 03/24/ before bed, M.D. 2017 for high blood pressure Doxazosin 03/12/ Hx Tablets 4mg 90tab take 1 tablet I10 Silcoff, Mesylate 2018 - s by mouth Servando 03/15/ every night M.D. 2018 at bedtime for high blood pressure PT For Low 03/12/ Hx please M54.5 Silcoff, Back Pain 2018 - evaluate and Servando 02/16/ treat, M.D. 2019 modalities as needed, instruct in hep Doxazosin 01/04/ Hx Tablets 4mg 90tab Take One I10 Silcoff, Mesylate 2017 - s Tablet By Servando 03/12/ Mouth AT M.D. 2018 Bedtime For High Blood Pressure Escitalopram 12/25/ Hx Tablets 10mg 30tab / by mouth F34.1 Silcoff, Oxalate 2018 - s every day for Servando week then 1 M.D. 2018 tablet daily; for mood Baclofen 12/14/ Hx Tablets 10mg 14tab take 1 tablet G24.3 Sopchak, 2018 - s by mouth at [place], 12/24/ night for D.O. 2018 muscle spasms Prednisone 09/06/ Hx Tablets 20mg 10tab 2 tab by T63.441A Davida, 2017 - s mouth daily Servando 09/11/ x5 days M.D. 2016 Claritin 09/06/ Hx Tablets 10mg 30tab 1 tab by T63.441A Davida, 2017 - s mouth daily Servando 03/24/ as needed M.D. 2018 Doxazosin 08/20/ Hx Tablets 4mg 90tab take one I10 Silcoff, Mesylate 2016 - s tablet by Servando 01/04/ mouth at M.D. 2018 bedtime for high blood pressure Alendronate 08/01/ Hx Tablets 70mg 12tab 1 pill once M81.0 Silcoff, Sodium 2016 - s weekly on an Servando 01/28/ empty M.D. 2016 stomach. take w/ 8oz of water. don't eat anything or lie down for 30min after taking this med Losartan 01/17/ Hx Tablets 50-12.5mg 90tab 1 by mouth I10 Silcoff, Potassium/Hydr 2015 - s daily Servando ochlorothiazid 05/01/ MIngrid e 2016 Zostavax 04/28/ Hx Solution [id number]/ 1unit administer 1 Silcoff, 2014 - Rec 0.65ML s dose Servando 05/08/ M.D. 2014 Zostavax 11/13/ Hx Solution [id number]/ 1unit administer 1 Davida 2013 - Rec 0.65ML s dose Servando 11/20/ M.D. 2014 Alendronate 05/08/ Hx Tablets 70mg 12tab 1 pill once 733.00 Silesdras Sodium 2013 - s weekly on an Servando 06/11/ empty M.DEboni 2014 stomach. take w/ 8oz of water. don't eat anything or lie down for 30min after taking this med Picato 05/08/ Hx Gel 0.015% 3unit apply to 702.0 Davida 2013 - s affected Servando 11/22/ areas on left M.D. 2015 cheek and right side of forehead once daily for 3 days Escitalopram 05/08/ Hx Tablets 10mg 90tab Take One 300.00 Silcoff, Oxalate 2013 - s Tablet By Servando 12/14/ Mouth Once M.D. 2015 Daily For Mood 300.4 Escitalopram 04/01/2014 - Hx Tablets 10mg 30tabs 1/2 by 300.00 Silcoff, Oxalate 05/08/2014 mouth every Blessing Al day for 1 week then 1 tablet daily; for mood 300.4 Aspir-81 03/19/2014 - Hx Tablets DR 81mg 30tabs take one tab Davida, 11/22/2014 daily to reduce risk Servando heart Lorraine.Dale attck/stroke. Calcium 600 + D 02/23/2014 - Hx Tablets 600-400 1 by mouth twice M Davida, 03/24/2018 mg-Unit a day .0 Blessing Al Venlafaxine HCL 02/23/2014 - Hx Caps ER 37.5mg 7caps 1 by mouth every 300 Silcoff, ER 03/19/2014 24HR day for 1 week .4 Servando, then change to M.D. 75mg dose 300.00 Venlafaxine HCL 02/23/2014 - Hx Tablets ER 75mg 30tabs 1 by mouth 300.00 Silcoff, ER 04/01/2014 24HR every Servando morning M.D. starting after taking the 37.5mg dose for 1 week 300.4 Efudex 09/09/2012 - Hx Cream 5% 40gm apply to face 692.70 Servando Higuera, 02/18/2013 incl ears twice a M.D. day until sores develop, as directed 702.0 Doxazosin 09/09/2012 - Hx Tablets 2mg 90tabs take one I10 Silcoff, Mesylate 08/20/2017 tablet by Servando, mouth M.D. nightly before bed for high blood pressure Doxazosin 08/19/2012 - Hx Tablets 8mg 45tabs take 11/20 401.1 Silcoff, Mesylate 09/09/2012 tablet at Servando, bedtime for M.D. high blood pressure Goal 2011 - Hx 278.02 Silcojase, Qrsmnr=321 2012 Claudy Als M.D. Doxepin HCL 2011 - Hx Capsules 25mg 60caps 1 by mouth 698.9 Noemicoff, 03/08/2012 every night Servando, for itch; M.D. may increase to 2 pills nightly after 2-3 weeks if needed Micardis HCT 03/25/2010 - Hx Tablets 40-12.5 90tabs take one I10 Sopchak, 01/18/2016 mg tablet by Anastacio D.OEboni mouth every day in the morning for high blood pressure ok to split if combo unavailable. Micardis HCT 02/02/2010 - Hx Tablets 80-25mg 90tabs 1 po qam for 401.1 Silcoff, 03/18/2010 high blood Servando pressure M.D. Ibuprofen 07/30/2009 - Hx Tablets 600mg otc 1 tid with 728.71 Alejandro A. 08/06/2009 food - use Klepack, for 5 days M.D. then stop Trileptal 07/02/2009 - Hx Tablets 300mg 1 po qd 780.39 Jonatan, 03/17/2010 (switching MD Cher to Lamictal) Lamictal 07/02/2009 - Hx Tablets 25mg take as 780.39 Jonatan, 03/18/[address] Jonatan Kwon [employer] 04/30/2009 - Hx Unknown 03/24/2018 Nexium 03/24/2009 - Hx Capsules 40mg 90caps 1 po qd 787.02 Silcoff, 12/29/2009 Blessing Al 530.85 530.81 Doxazosin 03/24/2009 - Hx Tablets 4mg 90tabs Take One 401.1 Silcoff, Mesylate 08/19/2012 Tablet By Servando, Mouth AT M.D. Bedtime For High Blood Pressure Doxazosin 02/19/2009 - Hx Tablets 2mg 90tabs 1/2 po qhs to 401.1 Silcoff, Mesylate 03/24/2009 start; Servando, increase to 1 M.D. po qhs after 1 week if tolerating it well Norvasc 03/24/2008 - Hx Tabs 10mg 90tabs Take 1 Tablet 401.1 Silcoff, 03/07/2012 By Mouth Servando Every Day Blessing Bishop HCT 02/01/2008 - Hx Tablets 320/25 90tabs 1 PO qd 401.1 Silcoff, 02/02/2010 mg Blessing Al HCT 12/31/2007 - Hx Tablets 160/12 56sample 2 po qd 401.1 Silcoff, 02/01/2008 .5 Blessing Al Noritate 12/31/2007 - Hx Cream 1% 60gm Apply 1-2X/D 695.3 Silcoff, 09/09/2012 as Needed To Daphney Al On Lorraien.Dale Cheeks, Nose, Chin, forehead Trileptal 11/06/2007 - Hx Tablets 300mg 360tabs 4 po qhs for 780.39 Silcoff, 07/02/2009 seizure Servando prevention Blessing Diovan 11/06/2007 - Hx Tablets 320mg 90tabs 1 PO qd for 401.1 Silcoff, 12/31/2007 high BP Blessing Al Norvasc 11/06/2007 - Hx Tablets 5mg 90tabs 1 PO qd For 401.1 Silcoff, 03/24/2008 High BP Blessing Al Imitrex 11/06/2007 - Hx Solution 20mg/A 1 spray into 346.00 Unknown 09/15/2009 ct nose at onset of migraine; may repeat once after 2hrs to a max of 2 doses in 24hrs Baby Aspirin 11/06/2007 - Hx Tabs 81mg 1 po qd for 401.1 Unknown 11/28/2010 heart disease prevention Immunizations CPT Code Status Date Vaccine Lot # [id number] Given 08/20/2017 Influenza Vaccine Split Virus Preservative Free Im [id number] Use 17689 Given 08/01/2016 Influenza Vaccine Split Virus Preservative Free Im [id number] Use 65291 Given 08/31/2015 Influenza Virus Vaccine, Quadrivalent, Split, [id number] Preservative Free 50008 Given 04/28/2015 Prevnar 13 [id number] 68553 Given 09/18/2014 Influenza Vaccine Split Virus Preservative Free Im [id number] Use 52646 Given 09/08/2013 Flu, Split Virus 3Yrs [id number] 65189 Given 09/09/2012 Flu, Split Virus 3Yrs [id number] 60398 Given 2011 Flu, Split Virus 3Yrs [id number] 36814 Given 09/14/2010 Flu, Split Virus 3Yrs [id number] 17904 Given 08/09/2009 Flu, Split Virus 3Yrs [id number] 60813 Given 03/24/2009 Pneumococcal Immunization [id number] 26082 Given 03/24/2009 Td Immunization [id number] 18288 Given 10/27/2008 Flu, Split Virus 3Yrs 97411 Given 11/06/2007 Flu, Split Virus 3Yrs [id number] 16132 Refused 08/01/2016 Adacel or Boostrix, [id number] Refused 03/24/2009 Zostavax Vital Signs Date Vital Result Comment 02/17/2019 4:42pm BP Systolic 146 mmHg BP Diastolic 84 mmHg BP Systolic Recheck 180 mmHg R arm sitting BP Diastolic Recheck 80 mmHg R arm sitting Heart Rate 54 /min O2 % BldC Oximetry 98 % Body Temperature 97.9 F Height 63.25 inches 5'3.25" Weight 184.00 lb BMI (Body Mass Index) 32.3 kg/m2 07/03/2018 4:06pm BP Systolic 122 mmHg per pt, in am BP Diastolic 65 mmHg per pt, in am Heart Rate 72 /min 07/02/2018 4:06pm BP Systolic 148 mmHg per pt 1pm BP Diastolic 80 mmHg per pt 1pm Heart Rate 58 /min 06/26/2018 9:28am BP Systolic 132 mmHg BP Diastolic 62 mmHg BP Systolic Recheck 146 mmHg R arm sitting BP Diastolic Recheck 66 mmHg R arm sitting Weight 175.00 lb with sandals 04/23/2018 5:32pm BP Systolic 138 mmHg per nurse BP Diastolic 72 mmHg per nurse BP Systolic Recheck 180 mmHg R arm sitting; 166/76 w/ auto cuff BP Diastolic Recheck 82 mmHg R arm sitting; 166/76 w/ auto cuff Weight 172.00 lb 03/12/2018 1:59pm BP Systolic 128 mmHg R arm w/ our cuff; 132/55 w/ hers ( per RN) BP Diastolic 50 mmHg R arm w/ our cuff; 132/55 w/ hers (per RN) BP Systolic Recheck 148 mmHg R arm w/ our cuff; 155/56 w/ hers (per MD) BP Diastolic Recheck 74 mmHg R arm w/ our cuff; 155/56 w/ hers (per MD) Heart Rate 58 /min reg Weight 180.00 lb 01/04/2018 11:30am BP Systolic 108 mmHg RN, R arm sitting Lrg cuff BP Diastolic 58 mmHg RN, R arm sitting Lrg cuff BP Systolic Recheck 112 mmHg R arm sitting, electronic Lrg cuff BP Diastolic Recheck 50 mmHg R arm sitting, electronic Lrg cuff Heart Rate 63 /min 12/25/2017 4:45pm BP Systolic 142 mmHg BP Diastolic 68 mmHg BP Systolic Recheck 162 mmHg R arm; 159/63 w/ lg auto cuff BP Diastolic Recheck 66 mmHg R arm; 159/63 w/ lg auto cuff BP Systolic Standing Resting Right Arm 170 mmHg BP Diastolic Standing Resting Right Arm 88 mmHg 12/14/2017 2:07pm BP Systolic 138 mmHg BP Diastolic 82 mmHg Height 63 inches 5'3" Weight 182.00 lb BMI (Body Mass Index) 32.2 kg/m2 09/06/2017 3:07pm BP Systolic 142 mmHg BP Diastolic 70 mmHg Body Temperature 97.8 F Weight 181.00 lb with sandals 08/20/2017 9:26am BP Systolic 155 mmHg BP Diastolic 69 mmHg BP Systolic Recheck 156 mmHg R arm sitting BP Diastolic Recheck 68 mmHg R arm sitting Heart Rate 58 /min Weight 176.00 lb 05/01/2017 9:45am BP Systolic 140 mmHg BP Diastolic 78 mmHg BP Systolic Recheck 156 mmHg R arm sitting BP Diastolic Recheck 66 mmHg R arm sitting Height 63.5 inches 5'3.50" with sandals Weight 183.50 lb with sandals BMI (Body Mass Index) 32.0 kg/m2 01/29/2017 10:37am BP Systolic 142 mmHg per nurse BP Diastolic 70 mmHg per nurse BP Systolic Recheck 160 mmHg R arm; 170/84 L BP Diastolic Recheck 84 mmHg R arm; 170/84 L Heart Rate 64 /min reg Weight 190.00 lb 11/09/2016 3:17pm BP Systolic 138 mmHg BP Diastolic 80 mmHg Weight 185.00 lb 08/01/2016 9:10am BP Systolic 122 mmHg BP Diastolic 58 mmHg Heart Rate 54 /min reg Respiratory Rate 12 /min not laboured Height 63.25 inches 5'3.25" Weight 183.00 lb BMI (Body Mass Index) 32.2 kg/m2 12/14/2015 10:11am BP Systolic 120 mmHg per RN BP Diastolic 60 mmHg per RN BP Systolic Recheck 124 mmHg R arm sitting BP Diastolic Recheck 58 mmHg R arm sitting Height 63 inches 5'3" Weight 179.00 lb BMI (Body Mass Index) 31.7 kg/m2 06/11/2015 11:21am BP Systolic 154 mmHg BP Diastolic 80 mmHg BP Systolic Recheck 180 mmHg R arm sitting BP Diastolic Recheck 72 mmHg R arm sitting Height 64 inches 5'4" Weight 182.00 lb BMI (Body Mass Index) 31.2 kg/m2 11/23/2014 5:00pm BP Systolic 140 mmHg BP Diastolic 60 mmHg Height 63.25 inches 5'3.25" Weight 178.00 lb BMI (Body Mass Index) 31.3 kg/m2 05/08/2014 11:52am BP Systolic 130 mmHg BP Diastolic 60 mmHg Weight 178.00 lb shoes on 04/01/2014 9:10am BP Systolic 130 mmHg BP Diastolic 64 mmHg BP Systolic Recheck 134 mmHg R arm sitting BP Diastolic Recheck 68 mmHg R arm sitting Weight 177.00 lb 02/24/2014 3:00pm BP Systolic 182 mmHg Left arm, lrg cuff BP Diastolic 67 mmHg Left arm, lrg cuff Heart Rate 61 /min 02/23/2014 9:35am BP Systolic 138 mmHg BP Diastolic 60 mmHg BP Systolic Recheck 180 mmHg R arm sitting; 182/80 L arm lying BP Diastolic Recheck 80 mmHg R arm sitting; 182/80 L arm lying Heart Rate 52 /min reg Respiratory Rate 12 /min not laboured Height 63.25 inches 5'3.25" Weight 179.00 lb BMI (Body Mass Index) 31.5 kg/m2 02/24/2013 9:52am BP Systolic 104 mmHg BP Diastolic 60 mmHg BP Systolic Recheck 140 mmHg R arm sitting; 120 by palpation BP Diastolic Recheck 62 mmHg R arm sitting; 120 by palpation Heart Rate 60 /min reg Weight 169.00 lb 10/22/2012 10:34am BP Systolic 120 mmHg BP Diastolic 68 mmHg Heart Rate 72 /min reg Respiratory Rate 12 /min not laboured Weight 165.00 lb 09/18/2012 4:29pm BP Systolic 130 mmHg BP Diastolic 58 mmHg BP Systolic Recheck 148 mmHg R arm sitting BP Diastolic Recheck 70 mmHg R arm sitting 09/09/2012 10:48am BP Systolic 110 mmHg BP Diastolic 60 mmHg BP Systolic Recheck 133 mmHg R arm sitting BP Diastolic Recheck 62 mmHg R arm sitting Body Temperature 97.8 F Height 64 inches 5'4" Weight 166.00 lb 161 @ [employer] BMI (Body Mass Index) 28.5 kg/m2 06/21/2012 12:19pm BP Systolic 109 mmHg office electronic cuff, R arm BP Diastolic 45 mmHg office electronic cuff, R arm Heart Rate 74 /min 05/03/2012 9:03am BP Systolic 136 mmHg office bp check--pts bp mach:136/49 BP Diastolic 58 mmHg office bp check--pts bp mach:136/49 04/02/2012 8:58am BP Systolic 120 mmHg BP Diastolic 76 mmHg 03/08/2012 5:13pm BP Systolic 130 mmHg BP Diastolic 70 mmHg BP Systolic Recheck 160 mmHg R arm sitting BP Diastolic Recheck 78 mmHg R arm sitting Weight 167.00 lb Last Menstrual Period 0 12/20/2011 12:11pm BP Systolic 98 mmHg BP Diastolic 52 mmHg BP Systolic Recheck 96 mmHg BP Diastolic Recheck 50 mmHg Heart Rate 74 /min 2011 2:41pm BP Systolic 140 mmHg BP Diastolic 68 mmHg Height 63.25 inches 5'3.25" Weight 164.00 lb 159 lbs at [employer] BMI (Body Mass Index) 28.8 kg/m2 03/06/2011 3:41pm BP Systolic 122 mmHg BP Diastolic 64 mmHg BP Systolic Recheck 144 mmHg R arm sitting BP Diastolic Recheck 72 mmHg R arm sitting Height 63 inches 5'3" Weight 160.00 lb BMI (Body Mass Index) 28.3 kg/m2 11/29/2010 4:18pm BP Systolic 130 mmHg BP Diastolic 60 mmHg BP Systolic Recheck 150 mmHg R arm sitting BP Diastolic Recheck 62 mmHg R arm sitting Height 63.25 inches 5'3.25" Weight 161.00 lb BMI (Body Mass Index) 28.3 kg/m2 08/24/2010 2:00pm BP Systolic 110 mmHg BP Diastolic 60 mmHg BP Systolic Recheck 140 mmHg R arm sitting BP Diastolic Recheck 62 mmHg R arm sitting Weight 154.00 lb Last Menstrual Period 0 07/29/2010 10:58am BP Systolic 130 mmHg BP Diastolic 62 mmHg 03/25/2010 2:35pm BP Systolic 154 mmHg BP Diastolic 78 mmHg 03/18/2010 3:22pm BP Systolic 130 mmHg BP Diastolic 70 mmHg BP Systolic Recheck 144 mmHg R arm sitting BP Diastolic Recheck 68 mmHg R arm sitting Weight 177.00 lb 09/15/2009 1:24pm BP Systolic 106 mmHg BP Diastolic 56 mmHg Weight 194.00 lb Last Menstrual Period 0 08/09/2009 12:01pm BP Systolic 112 mmHg BP Diastolic 56 mmHg Height 63.5 inches 5'3.50" Weight 192.00 lb BMI (Body Mass Index) 33.5 kg/m2 07/30/2009 11:47am BP Systolic 118 mmHg BP Diastolic 64 mmHg Weight 196.00 lb 07/02/2009 9:14am BP Systolic 102 mmHg BP Diastolic 62 mmHg Weight 194.00 lb 04/30/2009 8:57am BP Systolic 126 mmHg BP Diastolic 60 mmHg BP Systolic Recheck 140 mmHg R arm sitting; 130 by palpation BP Diastolic Recheck 60 mmHg R arm sitting; 130 by palpation Heart Rate 78 /min reg Weight 198.00 lb 03/24/2009 1:14pm BP Systolic 122 mmHg BP Diastolic 64 mmHg BP Systolic Recheck 146 mmHg R ivonne sitting BP Diastolic Recheck 68 mmHg R ivonne sitting Height 63.25 inches 5'3.25" Weight 200.00 lb BMI (Body Mass Index) 35.1 kg/m2 03/22/2009 9:19am BP Systolic 150 mmHg BP Diastolic 78 mmHg 02/19/2009 4:32pm BP Systolic 140 mmHg BP Diastolic 82 mmHg BP Systolic Recheck 170 mmHg R arm sitting; 150/78 by automated cuff BP Diastolic Recheck 80 mmHg R arm sitting; 150/78 by automated cuff Heart Rate 68 /min reg Height 63 inches 5'3" Weight 201.00 lb BMI (Body Mass Index) 35.6 kg/m2 Last Menstrual Period 0 10/27/2008 2:26pm BP Systolic 122 mmHg BP Diastolic 84 mmHg BP Systolic Recheck 148 mmHg R arm sitting; repeat 156/76 BP Diastolic Recheck 80 mmHg R arm sitting; repeat 156/76 Heart Rate 64 /min reg Height 63.6 inches 5'3.60" Weight 192.00 lb BMI (Body Mass Index) 33.4 kg/m2 07/08/2008 5:30pm BP Systolic 130 mmHg BP Diastolic 62 mmHg BP Systolic Recheck 144 mmHg R arm sitting BP Diastolic Recheck 62 mmHg R arm sitting Height 63.6 inches 5'3.60" Weight 190.00 lb BMI (Body Mass Index) 33.0 kg/m2 05/25/2008 11:22am BP Systolic 124 mmHg BP Diastolic 70 mmHg BP Systolic Recheck 188 mmHg R arm sitting BP Diastolic Recheck 74 mmHg R arm sitting Height 63.6 inches 5'3.60" Weight 191.00 lb BMI (Body Mass Index) 33.2 kg/m2 03/24/2008 10:36am BP Systolic 146 mmHg BP Diastolic 76 mmHg BP Systolic Recheck 160 mmHg R arm sitting BP Diastolic Recheck 62 mmHg R arm sitting Heart Rate 64 /min reg Height 63.6 inches 5'3.60" Weight 196.00 lb BMI (Body Mass Index) 34.1 kg/m2 Last Menstrual Period 0 03/17/2008 9:27am BP Systolic 184 mmHg BP Diastolic 84 mmHg Height 63.6 inches 5'3.60" 02/01/2008 9:08am BP Systolic 150 mmHg BP Diastolic 80 mmHg BP Systolic Recheck 156 mmHg R arm sitting BP Diastolic Recheck 70 mmHg R arm sitting Height 63.6 inches 5'3.60" Weight 192.00 lb BMI (Body Mass Index) 33.4 kg/m2 12/31/2007 8:59am BP Systolic 148 mmHg BP Diastolic 74 mmHg BP Systolic Recheck 170 mmHg R arm sitting BP Diastolic Recheck 80 mmHg R arm sitting Heart Rate 68 /min reg Height 63.6 inches 5'3.60" Weight 186.00 lb BMI (Body Mass Index) 32.3 kg/m2 Last Menstrual Period 0 11/06/2007 3:43pm BP Systolic 150 mmHg BP Diastolic 84 mmHg BP Systolic Recheck 164 mmHg R arm sitting BP Diastolic Recheck 92 mmHg R arm sitting Heart Rate 76 /min reg Respiratory Rate 16 /min not laboured Height 63.6 inches 5'3.60" Weight 182.00 lb BMI (Body Mass Index) 31.6 kg/m2 Last Menstrual Period 0 Results Test Date Facility Test Result H/L Range Note Comp Metabolic Panel 03/19/2018 [facility] Sodium 137 mmol/L Low 139- 145 [phone] Potassium 3.6 mmol/L N 3.5-5.0 Chloride 103 mmol/L N 101-111 Co2 Carbon Dioxide 24 mmol/L N 22-32 Anion Gap 10 mmol/L N 2-11 Glucose 108 mg/dL High 70-100 Blood Urea Nitrogen 27 mg/dL High 6-24 Creatinine 1.17 mg/dL High 0.51-0.95 BUN/Creatinine Ratio 23.1 High 8-20 Calcium 9.2 mg/dL N 8.6-10.3 Total Protein 6.7 g/dL N 6.4-8.9 Albumin 4.2 g/dL N 3.2-5.2 Globulin 2.5 g/dL N 2-4 Albumin/Globulin Ratio 1.7 N 1-3 Total Bilirubin 0.30 mg/dL N 0.2-1.0 Alkaline Phosphatase 123 U/L High 34-104 Alt 14 U/L N 7-52 Ast 17 U/L N 13-39 Egfr Non- 45.2 >60 Egfr 58.2 >60 1 Inr/Protime 03/19/2018 [facility] Inr 0.90 N 0.77-1.02 [phone] Laboratory test 03/19/2018 [facility] Partial 31.6 seconds N 26.0- 36.3 finding [phone] Thrombo Time PTT CBC Auto Diff 03/19/2018 [facility] White Blood 10.8 10^3/uL N 3.5- 10.8 [phone] Count Red Blood Count 4.20 10^6/uL N 4.0-5.4 Hemoglobin 12.2 g/dL N 12.0-16.0 Hematocrit 36 % N 35-47 Mean Corpuscular Volume 85 fL N 80-97 Mean Corpuscular Hemoglobin 29 pg N 27-31 Mean Corpuscular HGB Conc 34 g/dL N 31-36 Red Cell Distribution Width 15 % N 10.5-15 Platelet Count 204 10^3/uL N 150-450 Mean Platelet Volume 8.6 um3 N 7.4-10.4 Abs Neutrophils 7.8 10^3/uL High 1.5-7.7 Abs Lymphocytes 2.2 10^3/uL N 1.0-4.8 Abs Monocytes 0.7 10^3/uL N 0-0.8 Abs Eosinophils 0.2 10^3/uL N 0-0.6 Abs Basophils 0.1 10^3/uL N 0-0.2 Abs Nucleated RBC 0 10^3/uL Granulocyte % 71.7 % N 38-83 Lymphocyte % 20.2 % Low 25-47 Monocyte % 6.0 % N 0-7 Eosinophil % 1.6 % N 0-6 Basophil % 0.5 % N 0-2 Nucleated Red Blood Cells % 0 Type & Screen 03/19/2018 [facility] Patient Blood Type O Negative [phone] Antibody Screen NEGATIVE Basic Metabolic Panel 08/20/2017 [facility] Sodium 141 mmol/L N 133- 145 [phone] Potassium 4.6 mmol/L N 3.5-5.0 Chloride 105 mmol/L N 101-111 Co2 Carbon Dioxide 30 mmol/L N 22-32 Anion Gap 6 mmol/L N 2-11 Glucose 96 mg/dL N 70-100 Blood Urea Nitrogen 21 mg/dL N 6-24 Creatinine 0.73 mg/dL N 0.51-0.95 BUN/Creatinine Ratio 28.8 High 8-20 Calcium 9.2 mg/dL N 8.6-10.3 Egfr Non- 78.1 N >60 Egfr 100.5 N >60 2 Urine Micro Inhouse 05/01/2017 In House Ua WBC 2-6 3 Ua RBC - Ua Casts - Ua Epi several Ua Other - Ua Glucose - Ua Bilirubin - Ua Ketones 1.010 Ua Specific Friendship - Ua Blood 5.0 Ua PH - Ua Protein - Ua Urobilinogen - Ua Nitrite mod Basic Metabolic Panel 01/29/2017 [facility] Sodium 137 mmol/L N 133- 145 [phone] Potassium 4.3 mmol/L N 3.5-5.0 Chloride 102 mmol/L N 101-111 Co2 Carbon Dioxide 31 mmol/L N 22-32 Anion Gap 4 mmol/L N 2-11 Glucose 91 mg/dL N 70-100 Blood Urea Nitrogen 15 mg/dL N 6-24 Creatinine 0.75 mg/dL N 0.51-0.95 BUN/Creatinine Ratio 20.0 N 8-20 Calcium 9.2 mg/dL N 8.6-10.3 Egfr Non- 75.7 N >60 Egfr 97.4 N >60 4 Laboratory test 01/29/2017 [facility] TSH (Thyroid 2.23 mcIU/mL N 0.34-5.60 finding [phone] Stim Horm) CBC Auto Diff 01/29/2017 [facility] White Blood 9.7 10^3/uL N 3.5- 10.8 [phone] Count Red Blood Count 4.48 10^6/uL N 4.0-5.4 Hemoglobin 13.2 g/dL N 12.0-16.0 Hematocrit 39 % N 35-47 Mean Corpuscular Volume 87 fL N 80-97 Mean Corpuscular Hemoglobin 29 pg N 27-31 Mean Corpuscular HGB Conc 34 g/dL N 31-36 Red Cell Distribution Width 15 % N 10.5-15 Platelet Count 203 10^3/uL N 150-450 Mean Platelet Volume 9 um3 N 7.4-10.4 Abs Neutrophils 6.9 10^3/uL N 1.5-7.7 Abs Lymphocytes 1.8 10^3/uL N 1.0-4.8 Abs Monocytes 0.7 10^3/uL N 0-0.8 Abs Eosinophils 0.2 10^3/uL N 0-0.6 Abs Basophils 0 10^3/uL N 0-0.2 Abs Nucleated RBC 0 10^3/uL N Granulocyte % 71.2 % N 38-83 Lymphocyte % 19.0 % Low 25-47 Monocyte % 7.6 % N 1-9 Eosinophil % 1.7 % N 0-6 Basophil % 0.5 % N 0-2 Nucleated Red Blood Cells % 0 N Laboratory test finding 01/29/2017 [facility] Ferritin 45.3 ng/mL N 11-307 [phone] Iron & Iron Binding Capacity 01/29/2017 [facility] Iron 70 g/dL N 50-212 [phone] Unsaturated Iron Binding 242 g/dL N Total Iron Binding Capacity 312 g/dL N 250-450 % Iron Saturation 22 % N 15-55 Urine Micro Inhouse 12/14/2015 In House Ua WBC 0-3 5 Ua RBC - Ua Casts - Ua Epi 2-4 Ua Other - Ua Glucose - Ua Bilirubin - Ua Ketones - Ua Specific Friendship 1.015 Ua Blood - Ua PH 6.0 Ua Protein - Ua Urobilinogen - Ua Nitrite - Ua Leukocytes sm Basic Metabolic Panel 12/14/2015 [facility] Sodium 138 mmol/L N 133- 145 [phone] Potassium 4.7 mmol/L N 3.5-5.0 Chloride 101 mmol/L N 101-111 Co2 Carbon Dioxide 29 mmol/L N 22-32 Anion Gap 8 mmol/L N 2-11 Glucose 89 mg/dL N 70-100 Blood Urea Nitrogen 16 mg/dL N 6-24 Creatinine 0.78 mg/dL N 0.51-0.95 BUN/Creatinine Ratio 20.5 High 8-20 Calcium 9.1 mg/dL N 8.6-10.3 Egfr Non- 72.6 N >60 Egfr 93.4 N >60 6 Laboratory test 06/29/2015 [facility] Surgical SEE RESULT 7 finding [phone] Pathology BELOW Basic Metabolic 01/19/2015 [facility] Sodium 139 mmol/L N 133-145 8 Panel [phone] Potassium 4.2 mmol/L N 3.5-5.0 Chloride 104 mmol/L N 101-111 Co2 Carbon Dioxide 31 mmol/L N 22-32 Anion Gap 4 mmol/L N 2-11 Glucose 88 mg/dL N 70-100 Blood Urea Nitrogen 13 mg/dL N 6-24 Creatinine 0.73 mg/dL N 0.51-0.95 BUN/Creatinine Ratio 17.8 N 8-20 Calcium 9.1 mg/dL N 8.6-10.3 Egfr Non- 78.6 N >60 Egfr 101.1 N >60 9 Laboratory test finding 01/19/2015 [facility] Alt 11 U/L N 7-52 10 [phone] Lipid Profile 01/19/2015 [facility] Triglycerides 138 mg/dL N 11 (Trig/Chol/HDL) [phone] Cholesterol 188 mg/dL N 12 HDL Cholesterol 49.0 mg/dL N 13 LDL Cholesterol 111 mg/dL N 14 Urine Micro Inhouse 05/08/2014 In House Ua WBC 0-2 Ua RBC - Ua Casts - Ua Epi 2-3 Ua Other - Ua Glucose - Ua Bilirubin - Ua Ketones - Ua Specific Friendship 1.020 Ua Blood - Ua PH 5.0 Ua Protein - Ua Urobilinogen - Ua Nitrite - Ua Leukocytes Surgical Pathology 04/28/2014 [facility] S RUN DATE: 04/30/ <SEE 15 [phone] NOTE> Urine Micro Inhouse 02/24/2013 In House Ua WBC - Ua RBC - Ua Casts - Ua Epi 0-2 Ua Other - Ua Glucose - Ua Bilirubin - Ua Ketones - Ua Specific Friendship 1.005 Ua Blood - Ua PH 5.0 Ua Protein - Ua Urobilinogen - Ua Nitrite - Ua Leukocytes - Basic Metabolic Panel 02/24/2013 [facility] Sodium 142 mmol/L 133- 145 [phone] Potassium 4.4 mmol/L 3.5-5.0 Chloride 105 mmol/L 101-111 Co2 Carbon Dioxide 31.0 mmol/L 22-32 Anion Gap 6.0 mmol/L 2-11 Glucose 83 mg/dL 70-100 Blood Urea Nitrogen 16 mg/dL 6-24 Creatinine 0.70 mg/dL 0.50-1.40 BUN/Creatinine Ratio 22.9 High 8-20 Calcium 9.5 mg/dL 8.1-9.9 Egfr Non- 83.0 >60 Egfr 106.7 >60 16 Surgical 06/25/2012 [facility] Surgical <SEE 17 Pathology [phone] Pathology NOTE> Basic 03/19/2012 [facility] Sodium 138 mmol/L 135-1 Metabolic [phone] Panel Potassium 4.5 mmol/L 3.5-5.0 Chloride 104 mmol/L 101-111 Co2 (Carbon Dioxide) 30.0 mmol/L 22-32 Anion Gap 4.0 mmol/L 2-11 18 Glucose 84 mg/dL 70-100 BUN 15 mg/dL 6-24 Creatinine 0.8 mg/dL 0.50-1.40 One Over Creatinine 1.25 BUN/Creatinine Ratio 18.8 8-20 Calcium 9.0 mg/dL 8.1-9.9 eGFR Non- 71.3 > 60 eGFR 91.7 > 60 19 Basic Metabolic Panel 03/08/2011 [facility] Sodium 140 mmol/L 135- 145 [phone] Potassium 4.2 mmol/L 3.5-5.0 Chloride 106 mmol/L 101-111 Co2 (Carbon Dioxide) 31.0 mmol/L 22-32 Anion Gap 3.0 mmol/L 2-11 20 Glucose 78 mg/dL 70-100 BUN 13 mg/dL 6-24 Creatinine 0.70 mg/dL 0.50-1.40 One Over Creatinine 1.40 BUN/Creatinine Ratio 18.6 8-20 Calcium 9.0 mg/dL 8.1-9.9 eGFR Non- 83.5 > 60 eGFR 107.3 > 60 21 CBC Auto Diff 03/08/2011 [facility] White Blood Count 6.6 CUMM 4.8- 10.8 [phone] Red Cell Count 4.20 CUMM 4.2-5.4 Hemoglobin 12.6 g/dL 12.0-16.0 Hematocrit 37 % 35-47 Mean Corpuscular Volume 88 um3 79-97 Mean Corpuscular Hemoglob 30 pg 27-31 Mean Corpuscular HGB Cone 34 g/dL 32-36 Redcell Distribution WDTH 15 % 10.5-15 Platelet Count 190 CUMM 150-450 Mean Platelet Volume 9.3 um3 7.4-10.4 Gran % 69.1 % 38-83 Lymph % 20.8 % Low 25-47 Mononuclear % 7.6 % 1-9 Eosinophil % 2.0 % 0-6 Basophil % 0.5 % 0-2 Abs Lymphs 1.4 1.0-4.8 Abs Mononuclear 0.5 0-0.8 Absolute Neutrophil Count 4.6 1.5-7.7 Abs Eosinophils 0.1 0-0.6 Abs Basophils 0 0-0.2 Urine Micro Inhouse 03/06/2011 In House Ua WBC - Ua RBC - Ua Casts - Ua Epi - Ua Other - Ua Glucose - Ua Bilirubin - Ua Ketones - Ua Specific Friendship 1.015 Ua Blood - Ua PH 5.0 Ua Protein - Ua Urobilinogen - Ua Nitrite - Ua Leukocytes - Urine Micro Inhouse 08/24/2010 In House Ua WBC 1-4 Ua RBC - Ua Casts - Ua Epi occ Ua Other debri Ua Glucose - Ua Bilirubin - Ua Ketones - Ua Specific Friendship 1.030 Ua Blood - Ua PH 5.0 Ua Protein tr Ua Urobilinogen - Ua Nitrite - Ua Leukocytes sml Basic Metabolic Panel 08/01/2010 [facility] Sodium 140 mmol/L 135- 145 [phone] Potassium 3.7 mmol/L 3.5-5.0 Chloride 106 mmol/L 101-111 Co2 (Carbon Dioxide) 28.0 mmol/L 22-32 Anion Gap 6.0 mmol/L 2-11 22 Glucose 138 mg/dL High 70-100 23 BUN 16 mg/dL 6-24 Creatinine 0.80 mg/dL 0.50-1.40 One Over Creatinine 1.20 BUN/Creatinine Ratio 20.0 8-20 Calcium 9.0 mg/dL 8.1-9.9 eGFR Non- 76.3 > 60 eGFR 92.3 > 60 24 Laboratory test 09/15/2009 [facility] Cytology PAP NEG 25 finding [phone] Xray 07/30/2009 [facility] Medicine X-Ray, Foot, sm heel Right, Complete spur/wnl Laboratory test 03/22/2009 [facility] Alt (SGPT) 17 U/L 14-54 finding [phone] Lipid Profile 03/22/2009 [facility] Triglyceride 50 mg/dL 40-20 (Trig/Chol/HDL) [phone] Cholesterol 206 mg/dL High Less Than 200 26 High Density Lipoprotein 72 mg/dL High 40-60 27 Cholesterol/HDL Ratio 2.86 AVERAGE 1-4.44 Low Density Lipoprotein 124 mg/dL High Less Than 100 28 Basic Metabolic Panel 03/22/2009 [facility] Sodium 132 mmol/L Low 135 -145 [phone] Potassium 4.5 mmol/L 3.5-5.0 Chloride 96 mmol/L Low 101-111 Co2 (Carbon Dioxide) 28.0 mmol/L 22-32 Anion Gap 8.0 mmol/L 2-11 29 Glucose 90 mg/dL 70-100 30 BUN 14 mg/dL 6-24 Creatinine 0.60 mg/dL 0.50-1.40 One Over Creatinine 1.60 BUN/Creatinine Ratio 23.3 High 8-20 Calcium 8.9 mg/dL 8.1-9.9 31 Laboratory test finding 02/25/2009 [facility] Magnesium 2.1 mg/dL 1.7-2.6 [phone] Troponin-I (TnI) 0 NG/ML 0-0.06 32 Trileptal (Oxcarbazepine) 24 ug/mL () 33 CMP 02/25/2009 [facility] Sodium 134 mmol/L Low 135-145 [phone] Potassium 4.1 mmol/L 3.5-5.0 Chloride 98 mmol/L Low 101-111 Co2 (Carbon Dioxide) 28.0 mmol/L 22-32 Anion Gap 8.0 mmol/L 2-11 34 Glucose 103 mg/dL High 70-100 35 BUN 18 mg/dL 6-24 Creatinine 0.70 mg/dL 0.50-1.40 One Over Creatinine 1.40 BUN/Creatinine Ratio 25.7 High 8-20 Calcium 9.3 mg/dL 8.1-9.9 36 Total Protein 6.9 GM/DL 6.2-8.1 Albumin 4.1 GM/DL 3.2-5.2 Globulin 2.8 GM/DL 2-4 Albumin/Globulin Ratio 1.5 1-3 Bilirubin Total 0.5 mg/dL 0.4-1.5 Alkaline Phosphatase 167 U/L High 30-110 Alt (SGPT) 16 U/L 14-54 Ast (Sgot) 20 U/L 12-42 CBC With Electronic 02/25/2009 [facility] White Blood 8.8 CUMM 4.8- 10.8 Diff Stat [phone] Count Red Cell Count 4.59 CUMM 4.2-5.4 Hemoglobin 13.6 g/dL 12.0-16.0 Hematocrit 40 % 35-47 Mean Corpuscular Volume 87 um3 79-97 Mean Corpuscular Hemoglob 30 pg 27-31 Mean Corpuscular HGB Cone 34 g/dL 32-36 Redcell Distribution WDTH 14 % 10.5-15 Platelet Count 258 CUMM 150-450 Mean Platelet Volume 7.8 um3 7.4-10.4 Gran % 67.9 % 38-83 Lymph % 22.6 % Low 25-47 Mononuclear % 8.2 % 1-9 Eosinophil % 1.0 % 0-6 Basophil % 0.3 % 0-2 Abs Lymphs 2.0 1.0-4.8 Abs Mononuclear 0.7 0-0.8 Absolute Neutrophil Count 6.0 1.5-7.7 Abs Eosinophils 0.1 0-0.6 Abs Basophils 0 0-0.2 Surgical 02/23/2009 [facility] Surgical <SEE 37 Pathology [phone] Pathology NOTE> Laboratory test 07/09/2008 [facility] Cytology PAP NEG (No T-zone) 38 finding [phone] Laboratory test 03/24/2008 [facility] Cytology INSUFF SAMPLE 39 finding [phone] Surgical 02/27/2008 [facility] GE jn Bx 40 Pathology [phone] Pathology Basic Metabolic 01/29/2008 [facility] Over 1.42 Panel [phone] Creatinine Anion Gap 3.0 mmol/L 2-11 41 BUN 10 mg/dL 6-24 Calcium 8.8 mg/dL 8.7-10.2 Chloride 104 mmol/L 101-111 Co2 (Carbon Dioxide) 29.0 mmol/L 22-32 Glucose 84 mg/dL 70-105 Potassium 4.8 mmol/L 3.5-5.0 Sodium 136 mmol/L 135-145 BUN/Creatinine Ratio 14.3 8-20 Creatinine 0.7 mg/dL 0.5-1.4 Urine Micro Inhouse 12/31/2007 In House Urine Microscopic see result notes 42 Inhouse Ua Inhouse 12/31/2007 In House Ua Glucose - Ua Bilirubin - Ua Ketones - Ua Specific Friendship 1.030 Ua Blood - Ua PH 5.0 Ua Protein - Ua Urobilinogen - Ua Nitrite - Ua Leukocytes sm Basic Metabolic Panel 12/27/2007 [facility] Over Creatinine 1.42 [phone] Anion Gap 7.0 mmol/L 2-11 43 BUN 14 mg/dL 6-24 Calcium 9.6 mg/dL 8.7-10.2 Chloride 104 mmol/L 101-111 Co2 (Carbon Dioxide) 29.0 mmol/L 22-32 Glucose 91 mg/dL 70-105 Potassium 5.2 mmol/L High 3.5-5.0 Sodium 140 mmol/L 135-145 BUN/Creatinine Ratio 20.0 8-20 Creatinine 0.7 mg/dL 0.5-1.4 CBC With Electronic 12/27/2007 [facility] White Blood 7.4 CUMM 4.8- 10.8 Diff [phone] Count Abs Basophils 0 0-0.2 Abs Eosinophils 0.2 0-0.6 Absolute Neutrophil Count 4.9 1.5-7.7 Abs Lymphs 1.8 1.0-4.8 Abs Mononuclear 0.4 0-0.8 Basophil % 0.7 % 0-2 Hematocrit 40 % 35-47 Hemoglobin 13.6 g/dL 12.0-16.0 Eosinophil % 2.8 % 0-6 Gran % 66.2 % 38-83 Lymph % 24.3 % 20-45 Mean Corpuscular HGB Cone 34 g/dL 32-36 Mean Corpuscular Hemoglob 29 pg 27-31 Mean Corpuscular Volume 84 um3 79-97 Mean Platelet Volume 8.4 um3 7.4-10.4 Mononuclear % 6.0 % 1-9 Platelet Count 246 CUMM 150-450 Red Cell Count 4.71 CUMM 4.2-5.4 Redcell Distribution WDTH 15 % 10.5-15 Laboratory test 12/27/2007 [facility] TSH 1.92 MIU/ML 0.34-5.60 finding [phone] Lipid Profile 12/27/2007 [facility] Cholesterol/H 3.62 AVERAGE 1- 4.44 (Trig/Chol/HDL) [phone] DL Ratio Cholesterol 235 mg/dL High Less Than 200 44 Triglyceride 98 mg/dL 40-200 High Density Lipoprotein 65 mg/dL High 40-60 45 Low Density Lipoprotein 150 mg/dL High Less Than 100 46 Laboratory test finding 12/27/2007 [facility] Alt (SGPT) 17 U/L 14- 54 [phone] 1 Because ethnic data is not always readily available, this report includes an eGFR for both -Americans and non- Americans. The National Kidney Disease Education Program (NKDEP) does not endorse the use of the MDRD equation for patients that are not between the ages of 18 and 70, are , have extremes of body size, muscle mass, or nutritional status, or are non- or non-. According to the National Kidney Foundation, irrespective of diagnosis, the stage of the disease is based on the level of kidney function: Stage Description GFR(mL/min/1.73 m(2)) 1 Kidney damage with normal or decreased GFR 90 2 Kidney damage with mild decrease in GFR 60-89 3 Moderate decrease in GFR 30-59 4 Severe decrease in GFR 15-29 5 Kidney failure <15 (or dialysis) 2 Because ethnic data is not always readily available, this report includes an eGFR for both -Americans and non- Americans. The National Kidney Disease Education Program (NKDEP) does not endorse the use of the MDRD equation for patients that are not between the ages of 18 and 70, are , have extremes of body size, muscle mass, or nutritional status, or are non- or non-. According to the National Kidney Foundation, irrespective of diagnosis, the stage of the disease is based on the level of kidney function: Stage Description GFR(mL/min/1.73 m(2)) 1 Kidney damage with normal or decreased GFR 90 2 Kidney damage with mild decrease in GFR 60-89 3 Moderate decrease in GFR 30-59 4 Severe decrease in GFR 15-29 5 Kidney failure <15 (or dialysis) 3 oid, clear, gold 4 Because ethnic data is not always readily available, this report includes an eGFR for both -Americans and non- Americans. The National Kidney Disease Education Program (NKDEP) does not endorse the use of the MDRD equation for patients that are not between the ages of 18 and 70, are , have extremes of body size, muscle mass, or nutritional status, or are non- or non-. According to the National Kidney Foundation, irrespective of diagnosis, the stage of the disease is based on the level of kidney function: Stage Description GFR(mL/min/1.73 m(2)) 1 Kidney damage with normal or decreased GFR 90 2 Kidney damage with mild decrease in GFR 60-89 3 Moderate decrease in GFR 30-59 4 Severe decrease in GFR 15-29 5 Kidney failure <15 (or dialysis) 5 void, clear, yellow 6 Because ethnic data is not always readily available, this report includes an eGFR for both -Americans and non- Americans. The National Kidney Disease Education Program (NKDEP) does not endorse the use of the MDRD equation for patients that are not between the ages of 18 and 70, are , have extremes of body size, muscle mass, or nutritional status, or are non- or non-. According to the National Kidney Foundation, irrespective of diagnosis, the stage of the disease is based on the level of kidney function: Stage Description GFR(mL/min/1.73 m(2)) 1 Kidney damage with normal or decreased GFR 90 2 Kidney damage with mild decrease in GFR 60-89 3 Moderate decrease in GFR 30-59 4 Severe decrease in GFR 15-29 5 Kidney failure <15 (or dialysis) 7 SEE RESULT BELOW Name: JUHI YANCEY : [address]: Christopher Song MD Acct: [id number] Unit: [id number] AGE: 69 Location: [facility] Re06/29/15 SEX: F Status: REG REF SPEC: [id number] TORIBIO: 06/29/15- SUBM DR: Christopher Song MD REQ: [id number] RECD: 06/29/15 STATUS: REGINO ESCALANTE DR: Servando Higuera MD _ ORDERED: LEVEL IV FINAL DIAGNOSIS Gastroesophageal junction, biopsy: -- Squamous and columnar mucosa with chronic and focal acute inflammation. -- Negative for intestinal metaplasia and dysplasia. CLINICAL HISTORY No additional information provided POST-OPERATIVE DIAGNOSIS Esophagus - Dos Santos's esophagus, biopsied; stomach and duodenum - normal GROSS DESCRIPTION The specimen is received in formalin labeled, GE Junction Biopsies, and consists of two polo-pink irregular soft tissue fragments averaging 0.3 x 0.2 x 0.2 cm, which are submitted entirely in one cassette. Signed (signature on file) Shelby Madison MD 11/02 1143 END OF REPORT * ML=Testing performed at Main Lab DEPARTMENT OF PATHOLOGY, [address] [place] [address] Noe Gonzalez M.D. Director [facility] # [id number] FASTING 12 HOUR 9 Because ethnic data is not always readily available, this report includes an eGFR for both -Americans and non- Americans. The National Kidney Disease Education Program (NKDEP) does not endorse the use of the MDRD equation for patients that are not between the ages of 18 and 70, are , have extremes of body size, muscle mass, or nutritional status, or are non- or non-. According to the National Kidney Foundation, irrespective of diagnosis, the stage of the disease is based on the level of kidney function: Stage Description GFR(mL/min/1.73 m(2)) 1 Kidney damage with normal or decreased GFR 90 2 Kidney damage with mild decrease in GFR 60-89 3 Moderate decrease in GFR 30-59 4 Severe decrease in GFR 15-29 5 Kidney failure <15 (or dialysis) 10 FASTING 12 HOUR 11 Desirable <150 Borderline high 150-199 High 200-499 Very High >500 12 Desirable <200 Borderline high 200-239 High >239 13 Low <40 Desirable: 40-60 High: >60 14 Desirable <100 Near Optimal 100-129 Borderline high 130-159 High 160-189 Very High >189 15 RUN DATE: 04/30/14 [facility] LAB LIVE PAGE 1 RUN TIME: [address] [place] [address] Specimen Inquiry Name: JUHI YANCEY : [address]: Christopher Song MD Acct: [id number] Unit: [id number] AGE: 68 Location: [facility] Re04/28/14 SEX: F Status: REG REF SPEC: [id number] TORIBIO: 04/28/14- SUBM DR: Christopher Song MD REQ: [id number] RECD: 04/28/14 STATUS: REGINO ESCALANTE DR: Servando Higuera MD _ ORDERED: LEVEL IV FINAL DIAGNOSIS Colon, cecum, biopsy: A. Tubular adenoma. B. No high grade dysplasia or malignancy. CLINICAL HISTORY Routine screening colonoscopy POST-OPERATIVE DIAGNOSIS Screening colonoscopy to cecum - 3 polyps biopsied. 5-10 years GROSS DESCRIPTION The specimen is received in formalin labeled Juhi Yancey, Cecal Polyps ( Biopsy) and consists of a 0.8 x 0.3 x 0.2 cm. aggregate of multiple polo, irregular to polypoid soft tissue fragments. Submitted entirely, one cassette. Signed (signature on file) Noe Gonzalez MD 1432 END OF REPORT * ML=Testing performed at Main Lab DEPARTMENT OF PATHOLOGY, [address] [place] [address] Noe Gonzalez M.D. Director [facility] # [id number] 16 Because ethnic data is not always readily available, this report includes an eGFR for both -Americans and non- Americans. The National Kidney Disease Education Program (NKDEP) does not endorse the use of the MDRD equation for patients that are not between the ages of 18 and 70, are , have extremes of body size, muscle mass, or nutritional status, or are non- or non-. According to the National Kidney Foundation, irrespective of diagnosis, the stage of the disease is based on the level of kidney function: Stage Description GFR(mL/min/1.73 m(2)) 1 Kidney damage with normal or decreased GFR 90 2 Kidney damage with mild decrease in GFR 60-89 3 Moderate decrease in GFR 30-59 4 Severe decrease in GFR 15-29 5 Kidney failure <15 (or dialysis) 17 ---- RUN DATE: 06/27/12 [facility] NMI LIVE PAGE 1 RUN TIME: 1155 Specimen Inquiry RUN USER: INTERFACE -- Name: JUHI YANCEY Status: REG REF Re06/25/12 Age/Sex: 66/F Unit#: [id number] Location: [address] [place] [address]. : [birth year] -- Specimen: [id number] SOUT Spec Date:06/25/12- [facility] Dr: Christopher hidalgo MD Spec Type: SURGICAL P Received:06/26/12-1208 Copies to: Servando Higuera MD SPECIMEN BIOPSY ESOPHAGOGASTRIC JUNCTION HISTORY POST-OP DIAGNOSIS: Esophagus biopsy. CLINICAL INFORMATION: History of Dos Santos's esophagus. GROSS DESCRIPTION The specimen is received in formalin labelled Juhi Yancey, Biopsy EG Junction, and consists of two polo, soft tissue fragments measuring 0.6 x 0.3 x 0.2 cm. Submitted entirely, one cassette. DIAGNOSIS GE junction, biopsy: A. Gastroesophageal transition zone mucosa with mild reflux esophagitis. B. Gastric cardia mucosa with chronic inflammation and reactive glandular epithelial changes. C. No goblet cell metaplasia or dysplasia identified. Signed Electronically by: NOE GONZALEZ MD 06/27/12 1152 -- -- DEPARTMENT OF PATHOLOGY, [address] [place] [address] [facility] Permit #[id number] Noe Gonzalez M.D. Director João Montoya M.D. Efficiency Miner roberta -- 18 Anion gap measurement may be of limited value in the presence of any alkalosis, especially in a combined acid base disorder. . 19 Because ethnic data is not always readily available, this report includes an eGFR for both -Americans and non- Americans. The National Kidney Disease Education Program (NKDEP) does not endorse the use of the MDRD equation for patients that are not between the ages of 18 and 70, are , have extremes of body size, muscle mass, or nutritional status, or are non- or non-. According to the National Kidney Foundation, irrespective of diagnosis, the stage of the disease is based on the level of kidney function: Stage Description GFR(mL/min/1.73 m(2)) 1 Kidney damage with normal or decreased GFR 90 2 Kidney damage with mild decrease in GFR 60-89 3 Moderate decrease in GFR 30-59 4 Severe decrease in GFR 15-29 5 Kidney failure <15 (or dialysis) 20 Anion gap measurement may be of limited value in the presence of any alkalosis, especially in a combined acid base disorder. . 21 Because ethnic data is not always readily available, this report includes an eGFR for both -Americans and non- Americans. The National Kidney Disease Education Program (NKDEP) does not endorse the use of the MDRD equation for patients that are not between the ages of 18 and 70, are , have extremes of body size, muscle mass, or nutritional status, or are non- or non-. According to the National Kidney Foundation, irrespective of diagnosis, the stage of the disease is based on the level of kidney function: Stage Description GFR(mL/min/1.73 m(2)) 1 Kidney damage with normal or decreased GFR 90 2 Kidney damage with mild decrease in GFR 60-89 3 Moderate decrease in GFR 30-59 4 Severe decrease in GFR 15-29 5 Kidney failure <15 (or dialysis) 22 Anion gap measurement may be of limited value in the presence of any alkalosis, especially in a combined acid base disorder. . 23 Note change in reference range as of 07/09/08. The change was based on recommendations from the [employer]. 24 Because ethnic data is not always readily available, this report includes an eGFR for both -Americans and non- Americans. The National Kidney Disease Education Program (NKDEP) does not endorse the use of the MDRD equation for patients that are not between the ages of 18 and 70, are , have extremes of body size, muscle mass, or nutritional status, or are non- or non-. According to the National Kidney Foundation, irrespective of diagnosis, the stage of the disease is based on the level of kidney function: Stage Description GFR(mL/min/1.73 m(2)) 1 Kidney damage with normal or decreased GFR 90 2 Kidney damage with mild decrease in GFR 60-89 3 Moderate decrease in GFR 30-59 4 Severe decrease in GFR 15-29 5 Kidney failure <15 (or dialysis) 25 ---- RUN DATE: 09/16/09 [facility] NMI LIVE PAGE 1 RUN TIME: 1236 Specimen Inquiry RUN USER: INTERFACE -- Name: JUHI YANCEY Status: REG REF Re09/15/09 Age/Sex: 63/F Unit#: [id number] Location: [facility] : 43 -- Specimen: [id number] SOUT Spec Date: 09/15/[address]: Servando laguna MD Spec Type: CYTOLOGY Received: 09/16/09 Copies to: SOURCE ECTOCERVICAL/ENDOCERVICAL Thin Prep with Reflex HPV Test PATIENT INFORMATION ACTUAL COLLECTION DATE: 09/15/09 ? No POST MENOPAUSAL? Yes HYSTERECTOMY? No ADEQUACY OF SPECIMEN Satisfactory for evaluation * Transformation zone component cannot be definitely identified due to prese nce * of atrophy or other hormonal changes. * DIAGNOSIS NEGATIVE FOR INTRAEPITHELIAL LESION OR MALIGNANCY * This Pap test was evaluated with the assistance of the ThinPrep Pap Test Imaging System. The Pap Smear is a screening test designed to aid in the detection of premalign ant and malignant conditions of the uterine cervix. It is not a diagnostic procedure a nd should not be used as the sole means of detecting cervical cancer. Both false- positiv e and false-negative reports do occur. Depending on your risk status, a Pap smear edin uld be obtained and evaluated every one to three years. Initial evaluation performed by Ajith OCAMPO([facility]) 09/16/09 Final Interpretation electronically signed by: Ajith OCAMPO([facility]) 09/16/09 1235 -- -- DEPARTMENT OF PATHOLOGY, [address] [place] [address] [facility] Permit #[id number] Noe Gonzalez M.D. Director João Montoya M.D. Efficiency Miner Dir roberta -- 26 CHOLESTEROL INTERPRETATION: Desirable: Less than 200 MG/DL Borderline-High Risk: 200-239 MG/DL High-Risk: 240 MG/DL and over 27 HDL INTERPRETATION: Undesirable: High Risk: Less than 40 MG/DL Desirable: Low Risk: Greater than 60 MG/DL 28 LDL INTERPRETATION: Low Risk Optimal Level: LDL Less than 100 MG/DL Near or Above Optimal: LDL 100-129 MG/DL Borderline High Risk: LDL 130-159 MG/DL High Risk: LDL 160-189 MG/DL Very High Risk: LDL Greater than 189 MG/DL 29 Anion gap measurement may be of limited value in the presence of any alkalosis, especially in a combined acid base disorder. . 30 Note change in reference range as of 07/09/08. The change was based on recommendations from the [employer]. 31 Please note change in reference range effective 08 . 32 New Reference Range and Interpretation effective 08/22/02 TnI (ng/ml) INTERPRETATION <0.06 ng/ml NOT SUPPORTIVE OF DIAGNOSIS OF [place] 0.06 - 0.50 ng/ml INDETERMINATE: SUGGEST SERIAL STUDIES IF CLINICALLY INDICATED. > 0.5 ng/ml CONSISTENT WITH DIAGNOSIS OF [place] . 33 -- REFERENCE VALUE -- <40 (Peak) 6-10 (Trough) Test Performed by: [facility] Dpt of Lab Med and Pathology [address] [place] [address] Ctc Operator: Piyush Dumont III, M.D. 34 Anion gap measurement may be of limited value in the presence of any alkalosis, especially in a combined acid base disorder. . 35 Note change in reference range as of 07/09/08. The change was based on recommendations from the [employer]. 36 Please note change in reference range effective 08 . 37 ---- RUN DATE: 02/24/09 [facility] NMI LIVE PAGE 1 RUN TIME: 1456 Specimen Inquiry RUN USER: INTERFACE -- Name: JUHI YANCEY Status: REG REF Re02/23/09 Age/Sex: 63/F Unit#: [id number] Location: [address] [place] [address]. : 43 -- Specimen: [id number] SOUT Spec Date: 02/23/[address]: Christopher cartagena MD Spec Type: SURGICAL P Received: 02/23/09-6887 Copies to: Servando Higuera MD SPECIMEN BIOPSY ESOPHAGOGASTRIC JUNCTION HISTORY PRE-OP DIAGNOSIS: Dos Santos's esophagus. GROSS DESCRIPTION Specimen is received in formalin labelled Candida Lundy EG Junction and consists of two, polo, soft tissue fragments measuring 0.6 x 0.3 x 0.2 cm. Submitted entirely, one cassette. DIAGNOSIS GE junction, biopsy: A. Gastroesophageal transition zone mucosa with mild reflux esophagitis. B. Reactive epithelial changes. C. No goblet cell metaplasia or dysplasia identified. Signed Electronically by: NOE GONZALEZ MD 02/24/09 8827 -- -- DEPARTMENT OF PATHOLOGY, [address] [place] [address] [facility] Permit #[id number] Blessing Dee M.D. Efficiency Miner Dir roberta -- 38 ---- RUN DATE: 07/10/08 [facility] NMI LIVE PAGE 1 RUN TIME: 5568 Specimen Inquiry RUN USER: INTERFACE -- Name: JUHI YANCEY Status: REG REF Re07/09/08 Age/Sex: 62/F Unit#: [id number] Location: [facility] : 43 -- Specimen: [id number] SOUT Spec Date: 07/09/08 [facility] Dr: Servando laguna MD Spec Type: CYTOLOGY Received: 07/10/08-50 Copies to: SOURCE ECTOCERVICAL/ENDOCERVICAL Thin Prep with Reflex HPV Test PATIENT INFORMATION ACTUAL COLLECTION DATE: 07/09/08 ? NO POST MENOPAUSAL? No HYSTERECTOMY? No PATIENT HISTORY: Last menstrual period menopausal Pap of 03/26 was insufficient sample ADEQUACY OF SPECIMEN Satisfactory for evaluation * Transformation zone component cannot be definitely identified due to prese nce * of atrophy or other hormonal changes. * DIAGNOSIS NEGATIVE FOR INTRAEPITHELIAL LESION OR MALIGNANCY * This Pap test was evaluated with the assistance of the EnhanceWorksPrep Pap Test Imaging System. The Pap Smear is a screening test designed to aid in the detection of premalign ant and malignant conditions of the uterine cervix. It is not a diagnostic procedure a nd should not be used as the sole means of detecting cervical cancer. Both false- positive and false-negative reports do occur. Depending on your risk status, a Pap smear edin uld be obtained and evaluated every one to three years. Initial evaluation performed by Marcia LAI([facility]) 07/10/08 Final Interpretation electronically signed by: Marcia LAI([facility]) 07/10/08 144 2 -- DEPARTMENT OF PATHOLOGY, [address] [place] [address] [facility] Permit #[id number] Noe Gonzalez M.D. Director of Laboratories -- 39 ---- RUN DATE: 03/25/08 [facility] NMI LIVE PAGE 1 RUN TIME: 1545 Specimen Inquiry RUN USER: INTERFACE -- Name: JUHI YANCYE Status: REG REF Re03/24/08 Age/Sex: 62/F Unit#: [id number] Location: [facility]. : 43 -- Specimen: [id number] SOUT Spec Date: 03/24/[address]: Servando laguna MD Spec Type: CYTOLOGY Received: 03/25/08 Copies to: SOURCE ECTOCERVICAL/ENDOCERVICAL Thin Prep with Reflex HPV Test PATIENT INFORMATION ACTUAL COLLECTION DATE: 03/24/08 ? NO POST MENOPAUSAL? Yes HYSTERECTOMY? No PATIENT HISTORY: Last menstrual period menopausal ADEQUACY OF SPECIMEN Unsatisfactory for evaluation * Specimen processed and examined, but unsatisfactory for evaluation of epi thelial * abnormality due to: * Insufficient epithelial component * DIAGNOSIS Please repeat. SUGGESTIONS Treat with estrogen/repeat smear in 3months, if clinically indicated TOPIC AL ESTROGEN NOTE Lubricant artifact present hampering specimen cellularity. This Pap test was evaluated with the assistance of the ThinPrep Pap Test Imaging System. The Pap Smear is a screening test designed to aid in the detection of premalign ant and malignant conditions of the uterine cervix. It is not a diagnostic procedure a nd should not be used as the sole means of detecting cervical cancer. Both false- positive and false-negative reports do occur. Depending on your risk status, a Pap smear edin uld be -- DEPARTMENT OF PATHOLOGY, [address] [place] [address] [facility] Permit #[id number] Noe Gonzalez M.D. Director of Laboratories -- -- RUN DATE: 03/25/08 [facility] NMI LIVE PAGE 2 RUN TIME: 1545 Specimen Inquiry RUN USER: INTERFACE -- Name: JUHI YANCEY Status: REG REF Re03/24/08 Age/Sex: 62/F Unit#: [id number] Location: [facility] : 43 -- -- CONTINUED -- (Continued) obtained and evaluated every one to three years. Initial evaluation performed by Ajith OCAMPO([facility]) 03/25/08 Final Interpretation electronically signed by: NOE GONZALEZ MD 03/25/08 15 44 -- -- DEPARTMENT OF PATHOLOGY, [address] [place] [address] [facility] Permit #[id number] Noe Gonzalez M.D. Director of Clean PET -- 40 ---- RUN DATE: 02/28/08 [facility] NMI LIVE PAGE 1 RUN TIME: 145 Specimen Inquiry RUN USER: INTERFACE [id number] JUHI YANCEY 62/F <REG REF 02/26> ([id number]) RENZO Song MD,Christopher Hunter -- Specimen: [id number] SOUT Spec Date: 02/27/[address]: Christopher cartagena MD Spec Type: SURGICAL P Received: 02/27/08-8083 Copies to: Servando Higuera MD SPECIMEN BIOPSY ESOPHAGOGASTRIC JUNCTION HISTORY CLINICAL INFORMATION: Dos Santos's esophagus GROSS DESCRIPTION The specimen is received in formalin labelled Juhi Yancey, Biopsy EG Junction, and consists of two, polo, soft tissue fragments measuring 0.4 x 0.2 x 0.2 cm. Submitted entirely, one cassette. DIAGNOSIS GE junction, biopsy - A) Gastric cardia type mucosa with chronic inflammation and foveolar hyperplasia. B) No goblet cell metaplasia identified. C) Focally indeterminant for dysplasia. Signed Electronically by: NOE GONZALEZ MD 02/28/08 1455 -- -- DEPARTMENT OF PATHOLOGY, [address] [place] [address] [facility] Permit #[id number] Noe Gonzalez M.D. Director of Laboratories -- 41 Anion gap measurement may be of limited value in the presence of any alkalosis, especially in a combined acid base disorder. . 42 loaded with epi and sediment, bacteria and wbc are seen but difficult to count 43 Anion gap measurement may be of limited value in the presence of any alkalosis, especially in a combined acid base disorder. . 44 Classification: Borderline High . 45 Classification: High . 46 CALCULATED LDL APPROXIMATES THE VALUE OF A DIRECT LDL MEASUREMENT. Classification: Borderline High . Procedures Date Code Description Status 02/14/2018 17414650 Mammogram Completed 08/20/2017 29288 Destruction Premalignant Skin Lesions, 2-14,Ea Completed 08/20/2017 56159 Destruction Premalignant Skin Lesions Completed 05/01/2017 96784 Destruction Premalignant Skin Lesions, 2-14,Ea Completed 05/01/2017 16239 Destruction Premalignant Skin Lesions Completed 08/01/2016 94167 Electrocardiogram Complete Completed 08/01/2016 90117 Dexa Bone Density Study One Or More Sites Axial Completed Skeleton 06/11/2015 10862 Electrocardiogram Complete Completed 04/19/2014 92010562 Colonoscopy Completed 02/23/2014 65939 Electrocardiogram Complete Completed 02/23/2014 69441 Dexa Bone Density Study One Or More Sites Axial Completed Skeleton 02/24/2013 53976 Electrocardiogram Complete Completed 03/08/2012 34687 Destruction Of Skin Lesions Up To 14 Flat Completed Warts/Molluscum Contag 03/08/2012 14841 Destruction Premalignant Skin Lesions, 2-14,Ea Completed 03/08/2012 17082 Destruction Premalignant Skin Lesions Completed 03/08/2012 53995 Electrocardiogram Complete Completed 03/06/2011 16170 Electrocardiogram Complete Completed 09/14/2010 82919 Destruction Premalignant Skin Lesions, 2-14,Ea Completed 09/14/2010 67697 Destruction Premalignant Skin Lesions Completed 08/24/2010 02292 Electrocardiogram Complete Completed 08/09/2009 95932 Destruction Of Skin Lesions Up To 14 Flat Completed Warts/Molluscum Contag 08/09/2009 26468 Destruction Premalignant Skin Lesions, 2-14,Ea Completed 08/09/2009 95822 Destruction Premalignant Skin Lesions Completed 07/30/2009 65922 X-Ray Foot Three Views Completed 02/19/2009 36077 Electrocardiogram Complete Completed 12/31/2007 51790 Electrocardiogram Complete Completed Encounters Type Date Location Provider Dx Diagnosis Office Visit 02/17/2019 Main Office Servando Higuera, R07.9 Chest pain, 4:00p M.D. unspecified I10 Essential (primary) hypertension R05 Cough Office Visit 06/26/2018 9:15a Main Office Servando Higuera I10 Essential (primary) M.D. hypertension Z23 Encounter for immunization I34.0 Nonrheumatic mitral (valve) insufficiency Office Visit 04/23/2018 4:30p Main Office Servando Higuera I10 Essential (primary) M.D. hypertension S72.001D Fx unsp part of nk of r femr, subs for clos fx w routn heal Office Visit 03/12/2018 2:00p Main Office Servando Higuera I10 Essential (primary) M.D. hypertension F34.1 Dysthymic disorder Z23 Encounter for immunization M54.5 Low back pain Z79.899 Other supervisor intermediates (current) drug therapy Office Visit 12/25/2017 4:30p Main Office Servando Higuera I10 Essential (primary) M.D. 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 Office Visit 09/06/2017 2:35p Main Office Ada De La Paz, T63.441A Toxic effect of [place] venom of bees, accidental, init Office Visit 08/20/2017 9:15a Main Office Nithya Higuera Essential (primary ) Blessing Al hypertension L57.0 Actinic keratosis Z23 Encounter for immunization Office Visit 05/01/2017 9:30a Main Office Servando Higuera I10 Essential (primary) MIngrid hypertension L57.0 Actinic keratosis Office Visit 01/29/2017 10:15a Main Office Servando Higuera I10 Essential (primary) MIngrid hypertension G25.81 Restless legs syndrome M54.5 Low back pain M81.0 Age-related osteoporosis w/o current pathological fracture Office Visit 11/09/2016 3:25p Main Office Alejandro Reyes M54.5 Low back pain Blessing José Office Visit 12/14/2015 10:00a Main Office Servando Higuera I10 Essential (primary) Blessing hypertension F41.9 Anxiety disorder, unspecified F34.1 Dysthymic disorder R56.9 Unspecified convulsions Z12.31 Encntr screen mammogram for malignant neoplasm of breast Office Visit 06/11/2015 11:00a Main Office Servando Higuera, 401.1 Hypertension Benign M.D. 300.00 Anxiety State Unspec 300.4 Dysthymic Disorder 780.39 Convulsions Other 272.0 Hypercholesterolemia Pure 733.00 Osteoporosis Unspec V76.10 Screening For Malignant Neoplasm Breast 724.2 Lumbago Office Visit 11/23/2014 4:00p Main Office Servando Higuera, 300.4 Dysthymic Disorder M.D. 300.00 Anxiety State Unspec 780.79 Malaise And Fatigue Other 401.1 Hypertension Benign 733.00 Osteoporosis Unspec 702.0 Actinic Keratosis 272.0 Hypercholesterolemia Pure Office Visit 05/08/2014 11:15a Main Office Servando Higuera, 300.4 Dysthymic Disorder M.D. 300.00 Anxiety State Unspec 780.79 Malaise And Fatigue Other 780.39 Convulsions Other 733.00 Osteoporosis Unspec 401.1 Hypertension Benign 702.0 Actinic Keratosis Office Visit 04/01/2014 8:55a Main Office Servando Higuera, 300.4 Dysthymic Disorder M.D. 300.00 Anxiety State Unspec 780.39 Convulsions Other 401.1 Hypertension Benign 780.79 Malaise And Fatigue Other 733.00 Osteoporosis Unspec Office Visit 02/23/2014 9:45a Main Office Servando Higuera, 401.1 Hypertension Benign M.D. 780.39 Convulsions Other 300.00 Anxiety State Unspec 300.4 Dysthymic Disorder V76.10 Screening For Malignant Neoplasm Breast 733.90 Bone & Cartilage Disorder Unspec V76.51 Special Screening For Malignant Neoplasms Colon 733.00 Osteoporosis Unspec V70.0 Examination General Medical Routine AT Health Care Facility Office Visit 02/24/2013 9:45a Main Office Servando Higuera, 401.1 Hypertension Benign M.D. 698.9 Pruritic Disorder Unspec 780.39 Convulsions Other 300.00 Anxiety State Unspec Office Visit 10/22/2012 10:30a Main Office Servando Higuera, V70.0 Examination General M.D. Medical Routine AT Health Care Facility V76.10 Screening For Malignant Neoplasm Breast V76.2 Screening Malignant Neoplasm Cervix 401.1 Hypertension Benign 698.9 Pruritic Disorder Unspec Office Visit 09/18/2012 4:30p Main Office Servando Higuera, 401.1 Hypertension Benign M.D. Office Visit 09/09/2012 10:45a Main Office Servando Higuera, 692.70 Dermatitis Unspec M.D. Due To Sun 702.0 Actinic Keratosis 401.1 Hypertension Benign V04.81 Need For Prophylactic Vaccination & Inoculation/Influenza V07.2 Prophylactic Immunotherapy Office Visit 03/08/2012 4:30p Main Office Servando Higuera, 401.1 Hypertension Benign M.D. 530.85 dos santos's esophagus 698.9 Pruritic Disorder Unspec 702.0 Actinic Keratosis 702.19 Seborrheic Keratosis Other Office Visit 2011 2:00p Main Office Servando Higuera, 401.1 Hypertension Benign M.D. 530.85 dos santos's esophagus V70.0 Examination General Medical Routine AT Health Care Facility 780.39 Convulsions Other 272.0 Hypercholesterolemia Pure 362.50 Macular Degeneration Senile Unspec 698.9 Pruritic Disorder Unspec V76.10 Screening For Malignant Neoplasm Breast 278.02 Overweight V04.81 Need For Prophylactic Vaccination & Inoculation/Influenza V07.2 Prophylactic Immunotherapy Office Visit 03/06/2011 3:30p Main Office Servando Higuera, V72.84 Examination M.D. Preoperative Unspec 401.1 Hypertension Benign 530.85 dos santos's esophagus Office Visit 11/29/2010 4:00p Main Office Servando Higuera, V65.49 Counseling Other M.D. Spec 401.1 Hypertension Benign Office Visit 09/14/2010 2:00p Main Office Servando Higuera, 702.0 Actinic Keratosis M.D. 300.4 Dysthymic Disorder V04.81 Need For Prophylactic Vaccination & Inoculation/Influenza v04.81 Need For Prophylactic Vaccination & Inoculation/Influenza V07.2 Prophylactic Immunotherapy 401.1 Hypertension Benign Office Visit 08/24/2010 1:30p Main Office Servando Higuera, 401.1 Hypertension Benign M.D. 698.9 Pruritic Disorder Unspec V76.10 Screening For Malignant Neoplasm Breast 702.0 Actinic Keratosis Office Visit 07/29/2010 10:45a Main Office Nurse's Schedule 401.1 Hypertension Benign Office Visit 03/18/2010 2:30p Main Office Servando Higuera, 780.39 Convulsions Other M.D. 401.1 Hypertension Benign 698.9 Pruritic Disorder Unspec V76.10 Screening For Malignant Neoplasm Breast Office Visit 09/15/2009 1:30p Main Office Servando Higuera, V76.2 Screening M.D. Malignant Neoplasm Cervix 698.9 Pruritic Disorder Unspec 401.1 Hypertension Benign Office Visit 08/09/2009 11:30a Main Office Servando Higuera, 728.71 Fibromatosis M.D. Plantar Fascia 702.0 Actinic Keratosis 078.10 Viral Warts Unspec 733.90 Bone & Cartilage Disorder Unspec V04.81 Need For Prophylactic Vaccination & Inoculation/Influenza V07.2 Prophylactic Immunotherapy Office Visit 07/30/2009 11:30a Main Office Alejandro Reyes 728.71 Fibromatosis Blessing José Plantar Fascia 719.47 Pain Joint Ankle & Foot Office Visit 07/02/2009 9:15a Main Office Servando Higuera, 780.39 Convulsions Other M.D. 401.1 Hypertension Benign 530.85 dos santos's esophagus 702.0 Actinic Keratosis Office Visit 04/30/2009 8:55a Main Office Servando Higuera, 401.1 Hypertension Benign M.D. 300.00 Anxiety State Unspec Office Visit 03/24/2009 1:15p Main Office Servando Higuera, 401.1 Hypertension Benign M.D. 272.0 Hypercholesterolemia Pure 530.85 dos santos's esophagus 787.02 Nausea Alone V65.49 Counseling Other Spec 733.90 Bone & Cartilage Disorder Unspec 530.81 Esophageal Reflux 780.39 Convulsions Other v03.82 Streptococcus Pneumoniae Vaccination Spec Other v06.5 Tetanus Diphtheria (DT) v07.2 Prophylactic Immunotherapy Office Visit 02/19/2009 4:00p Main Office Servando Higuera, 401.1 Hypertension Benign M.D. 780.39 Convulsions Other V76.10 Screening For Malignant Neoplasm Breast 272.0 Hypercholesterolemia Pure 530.85 dos santos's esophagus Office Visit 10/27/2008 2:15p Main Office Servando Higuera, 401.1 Hypertension Benign M.D. 780.39 Convulsions Other 709.8 Skin Disorders Other Spec 698.9 Pruritic Disorder Unspec V04.81 Need For Prophylactic Vaccination & Inoculation/Influenza V07.2 Prophylactic Immunotherapy Office Visit 07/08/2008 5:15p Main Office Servando Higuera, V76.2 Screening M.D. Malignant Neoplasm Cervix 401.1 Hypertension Benign 787.02 Nausea Alone Office Visit 05/25/2008 11:15a Main Office Servando Higuera, 401.1 Hypertension Benign M.D. V76.2 Screening Malignant Neoplasm Cervix Office Visit 03/24/2008 10:30a Main Office Servando Higuera, 401.1 Hypertension Benign M.D. 780.39 Convulsions Other 530.85 dos santos's esophagus V76.2 Screening Malignant Neoplasm Cervix Office Visit 03/17/2008 8:45a Main Office Servando Higuera, 780.39 Convulsions Other M.D. 780.79 Malaise And Fatigue Other 401.1 Hypertension Benign Office Visit 02/01/2008 9:15a Main Office Servando Higuera, 401.1 Hypertension Benign M.D. 695.3 Rosacea 530.85 dos santos's esophagus 300.4 Dysthymic Disorder Office Visit 12/31/2007 8:45a Main Office Servando Higuera, 401.1 Hypertension Benign M.D. 272.0 Hypercholesterolemia Pure 780.39 Convulsions Other 695.3 Rosacea 702.0 Actinic Keratosis Office Visit 11/06/2007 3:30p Main Office Servando Higuera, 780.39 Convulsions Other M.D. 401.1 Hypertension Benign 346.00 Migraine Classical W/O Intractable W/O Status Migrainosus V76.10 Screening For Malignant Neoplasm Breast 272.0 Hypercholesterolemia Pure Plan of Treatment 02/17/2019 - Servando Higuera M.D.R07.9 Chest pain, unspecifiedComments:Suspect chest wall contusion, less likely rib fracture. Advised supportive measures only . RTO prn.I10 Essential (primary) hypertensionFollow up:Come in soon for non fasting bloodwork. Your blood pressure readings in our officeh today were repeatedly igh. Some people have high blood pressure in doctor's offices but not in other settings. In an effort to improve our understanding of your blood pressure and help to decide if (further) treatment is needed, please check your blood pressure at home or one of your local pharmacies several times over the next week then get back in touch with us via phone ([phone]) or our portal to let us know whatyour readings were.R05 CoughComments:Suspect ARB related cough. She does not feel it is bothersome enough to warrant changing her meds.
[2019-03-15] MEDS ORDERED: Nitrofurantoin Macrocrystals* 50 MG CAP PO ONE (12:56)
[2019-03-15] MEDS ORDERED: NS 0.9% 1000 ML** 1,000 ML IV SCH (13:00)
--- NOTE | 2019-03-15 13:11 | ED ---
HPI Cardiac - HPI Summary HPI Summary: 73 yo WF presents with reported low BP at [facility] today, SBP in 70-112, she has h/o HTN and states her BP when LOW runs in the 130s and she also felt "off" today and yesterday associated with dizziness while standing up from sitting position. Hates to drink H2O and drinks 2 large cups of coffee every AM, admits her urine color is dark yellow without dysuria - History of Current Complaint Chief Complaint: UCGeneralIllness Stated Complaint: LOW BLOOD PRESSURE Time Seen by Provider: 03/15/19 11:56 Hx Obtained From: Patient Onset/Duration: Started Hours Ago Timing: Constant Initial Severity: Moderate Current Severity: Moderate Pain Intensity: 0 - Additional Pertinent History Primary Care Physician: KAMALJIT - Allergy/Home Medications Allergies/Adverse Reactions: Allergies Allergy/AdvReac Type Severity Reaction Status Date / Time No Known Allergies Allergy Verified 03/15/19 11:59 PMH/Surg Hx/FS Hx/Imm Hx Previously Healthy: Yes Endocrine/Hematology History: Denies: Hx Diabetes Cardiovascular History: Reports: Hx Hypertension Respiratory History: Denies: Hx Asthma GI History: Reports: Hx Gall Bladder Disease - removed, Hx Gastroesophageal Reflux Disease - had surgery to correct that Musculoskeletal History: Reports: Hx Back Problems - lower back, will start PT for it Sensory History: Reports: Hx Contacts or Glasses, Hx Macular Degeneration Denies: Hx Hearing Aid Opthamlomology History: Reports: Hx Contacts or Glasses, Hx Macular Degeneration Neurological History: Reports: Hx Seizures Psychiatric History: Reports: Hx Anxiety - Cancer History Hx Chemotherapy: No Hx Radiation Therapy: No - Surgical History Surgery Procedure, Year, and Place: gallbladder. throat surgery Hx Anesthesia Reactions: No - Immunization History Date of Tetanus Vaccine: unk Date of Influenza Vaccine: utd Infectious Disease History: No Infectious Disease History: Denies: Traveled Outside the [place] in Last 30 Days - Family History Known Family History: Positive: None, Other - Patient denies relevant FHx - Social History Alcohol Use: Rare Substance Use Type: Reports: None Smoking Status (MU): Never Smoked Tobacco Review of Systems - ROS Summary Review of Systems Summary: Constitutional: Negative Eyes: Negative ENT: Negative Cardiovascular: low BP Respiratory: Negative Gastrointestinal: Negative Genitourinary: Negative Musculoskeletal: Negative Skin: Negative Neurological:mild dizziness Psychological: Normal All Other Systems Reviewed And Are Negative: Yes Physical Exam - Summary Physical Exam Summary: Appearance: Positive: No Pain Distress Skin: Positive: Warm Head/Face: Positive: Normal Head/Face Inspection Eyes: Positive: Normal ENT: Positive: Normal ENT inspection Neck: Positive: Supple Respiratory/Lung Sounds: Positive: Clear to Auscultation. Negative: Rales, Rhonchi, Wheezes Cardiovascular: Positive: Normal, RRR, S1, S2 Abdomen Description: Positive: Nontender, Soft Musculoskeletal: Positive: Normal, Strength/ROM Intact Neurological: Positive: CN Intact II-III Vital Signs On Initial Exam: Initial Vitals Temp Pulse Resp BP Pulse Ox 37.0 C 83 19 151/62 100 03/15/19 11:56 03/15/19 11:56 03/15/19 11:56 03/15/19 11:56 03/15/19 11:56 Diagnostics - Vital Signs Vital Signs Temp Pulse Resp BP Pulse Ox 03/15/19 12:04 80 157/59 03/15/19 11:56 37.0 C 83 19 151/62 100 - Laboratory Lab Results: Lab Results 03/15/19 Range/Units 12:09 POC Urine Color Dark yellow POC Urine Clarity Cloudy POC Urine pH 5.5 (5-9) POC Ur Specif [place] 1.020 (1.010-1.030) POC Urine Protein Trace A (Negative) POC Ur Glucose (UA) Negative (Negative) POC Urine Ketones 1+ A (Negative) POC Urine Blood Negative (Negative) POC Urine Nitrite Negative (Negative) POC Urine Bilirubin Negative (Negative) POC Urine Urobilinogen 0.2 (Negative) POC U Leukocyte Esteras 2+ A (Negative) Lab Statement: Any lab studies that have been ordered have been reviewed, and results considered in the medical decision making process. Disposition - Course Assessment/Plan: low BP- pt was orthostatic by SBP laying SBP 151, standing SBP 137, UA was dark with 2+ LE,. pt's clnically improved with IVF, will send for Ucx and tx with macrobid - Diagnoses Provider Diagnoses: Dehydration, moderate, Orthostasis, Orthostatic dizziness, UTI (urinary tract infection) Discharge - Sign-Out/Discharge Documenting (check all that apply): Patient Departure All imaging exams completed and their final reports reviewed: Yes - Discharge Plan Condition: Stable Disposition: HOME Prescriptions: Nitrofurantoin Monohyd/M-Cryst [Macrobid 100 mg Capsule] 100 mg PO BID 5 Days # 10 cap Patient Education Materials: Dehydration (ED), Hypotension (ED), Urinary Tract Infection in Women (ED) Referrals: Servando Higuera MD [Primary Care Provider] - Additional Instructions: drink plenty of water, follow up with PCP and/or get a second opinion about change in BP medication to one that does not make you cough Take medication as directed - Billing Disposition and Condition Condition: STABLE Disposition: Home
[2019-03-15 15:13] VITALS: BP 131/56
--- NOTE | 2019-03-17 07:54 | UC ---
- Progress Note Progress Note: urine culture neg growth please call pt - if improved, complete course Recommend f.u with PCP 03/17/19 Tyrel Course/Dx - Diagnoses Provider Diagnoses: Dehydration, moderate, Orthostasis, Orthostatic dizziness, UTI (urinary tract infection) Discharge - Sign-Out/Discharge Documenting (check all that apply): Post-Discharge Follow Up All imaging exams completed and their final reports reviewed: Yes - Discharge Plan Condition: Stable Disposition: HOME Prescriptions: Nitrofurantoin Monohyd/M-Cryst [Macrobid 100 mg Capsule] 100 mg PO BID 5 Days # 10 cap Patient Education Materials: Dehydration (ED), Urinary Tract Infection in Women (ED), Hypotension (ED) Referrals: Servando Higuera MD [Primary Care Provider] - Additional Instructions: drink plenty of water, follow up with PCP and/or get a second opinion about change in BP medication to one that does not make you cough Take medication as directed - Billing Disposition and Condition Condition: STABLE Disposition: Home
== END 2019-03-15 15:13 | disposition home or self-care (01) ==
LOC: UCCORT 11:52
DX: E86.0 Dehydration (principal); R03.1 Nonspecific low blood-pressure reading; R42 Dizziness and giddiness; N39.0 Urinary tract infection, site not specified; I10 Essential (primary) hypertension
CPT/HCPCS: 81003; 87086; 93005; 96360; 99212; A9270-GY; G0463